=== PATIENT | female | born 1990 | race Caucasian/White ===

== ENCOUNTER → 2020-05-29 11:49 | Outpatient (CLI) | payer MEDICAID, SELFPAY ==
[2020-05-28 16:06] VITALS: BMI 34.8
[2020-05-29 13:17] LABS: NATERA MAILED SPECIMEN
== END ==
PROVIDERS: Referring Provider Nurse Practitioner Women's Health; Visit Provider Nurse Practitioner Women's Health
DX: Z34.81 Encounter for supervision of other normal pregnancy, first trimester (principal); Z31.430 Encounter of female for testing for genetic disease carrier status for procreative management
CPT/HCPCS: 36415

== ENCOUNTER 2020-06-30 10:58 | Emergency (ER) | payer MEDICAID, SELFPAY ==
[2020-06-26 11:16] VITALS: BMI 34.8
[2020-06-30 10:59] VITALS: BP 128/97; PULSE 90; RESP 18; TEMP 36.2; O2SAT 98; BMI 34.9
[2020-06-30 11:34] VITALS: BP 108/84; PULSE 86; RESP 17; O2SAT 97
--- NOTE | 2020-06-30 11:54 | ED.VIS.GEN ---
History of Present Illness Chief Complaint: Informant: Patient Narrative: Patient presents the emergency department with lower pelvic pain during second trimester . G2, P1 at approximately 16 weeks and 6 days. She states that she has had some round ligament pain but this feels similar but more intense. She notes lower pelvis pain nto the back with radiation down legs at times. No leakage of fluid or bleeding. Patient went to urgent care and they wanted her to come here. 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 Patient denies any urinary symptoms. Blood pressure has been normal for her. Patient reports that she has been doing a significant amount of work lately. This requires her to be on her feet for extended periods of time. - Past Medical History (1) Cardiomyopathy Status: Chronic Comment: Reports developed while in hospital after last delivery. Was transferred to cardiac floor. Did not have to follow with cardiology after last delivery. Will get records. Plan M referral. 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 FOB negative. (3) Depression affecting Status: Chronic Comment: Patient with history of depression and anxiety. Was taken off medication when found out she was , but having severe depression. Celexa 20mg ordered 06/26 (4) JOSE M (generalized anxiety disorder) Status: Chronic (5) PTSD (post-traumatic stress disorder) Status: Chronic Comment: After last delivery Past Medical History - Allergies and Home Meds Allergies/Adverse Reactions: Allergies adhesive tape Adverse Reaction (Intermediate, Verified 06/30/20 10:59) Other CONTACT IRRITATION acetaminophen [From Percocet] Adverse Reaction (Mild, Verified 06/30/20 10:59) Itching oxycodone [From Percocet] Adverse Reaction (Mild, Verified 06/30/20 10:59) Itching Primary Care Physician: Care Physician,No Primary [Primary Care Provider] - Prior records reviewed: Yes Surgical History: noncontributory Smoking Status: Former smoker Alcohol: None Drugs: None Review of Systems General: Denies: Chills, Fever, Sweats Eyes: Denies: Visual changes - bilaterally, Diplopia ENT: Denies: Rhinorrhea, Sore throat Cardiovascular: Denies: Chest pain, Palpitations Respiratory: Denies: Dyspnea, Cough, Dyspnea on exertion Gastrointestinal: Denies: Abdominal pain, Nausea, Vomiting, Diarrhea, Melena, Hematochezia Genitourinary: Reports: - - Pelvic pain. Denies: Dysuria, Hematuria, Frequency Musculoskeletal: Reports: Back pain. Denies: Extremity Pain Skin: Denies: Rash, Wounds Neurological: Denies: Headache, Weakness, Numbness Physical Exam Vital Signs/Narrative: Vital Signs Temp Pulse Resp BP Pulse Ox 06/30/20 11:34 86 17 108/84 H 97 06/30/20 10:59 97.1 F L 90 18 128/97 H 98 Inital Vital Signs reviewed: Yes General: Well nourished, Well developed, Obese, No Acute Distress Head: Normocephalic, Atraumatic Eyes: Perrl, EOMI ENT: Moist mucous membranes, No rhinorrhea Neck: Supple, Nontender Cardiovascular: Regular rate, Regular rhythm, No murmurs Respiratory: No distress, CTA bilaterally, Chest nontender Abdomen: Soft, Nontender, Nondistended, Normal bowel sounds Back: Nontender, Normal Inspection Extremities: Nontender, No edema Skin: Normal color, No rash Neurological: Alert, Oriented x3, Cranial nerves II-XII grossly intact, Normal Strength, Normal Sensation Psychological: Normal affect, Normal Mood Diagnostic/Tx/Re-eval Laboratory Last Values Urine Color Yellow (Yellow) 06/30/20 12:20 Urine Clarity Sl. Cloudy (Clear) 06/30/20 12:20 Urine pH 6.5 (5.0 - 8.0) 06/30/20 12:20 Ur Specific [place] 1.015 (1.002-1.030) 06/30/20 12:20 Urine Protein 15 mg/dl (Negative) H 06/30/20 12:20 Urine Glucose (UA) Normal mg/dl (Normal) 06/30/20 12:20 Urine Ketones Negative mg/dl (Negative) 06/30/20 12:20 Urine Occult Blood 10 /ul (Negative) H 06/30/20 12:20 Urine Nitrite Positive (Negative) H 06/30/20 12:20 Urine Bilirubin Negative mg/dL (Negative) 06/30/20 12:20 Urine Urobilinogen Normal mg/dl (Normal) 06/30/20 12:20 Ur Leukocyte Esterase 25 /ul (Negative) H 06/30/20 12:20 Urine RBC 0-5 SEEN /hpf (0-5) 06/30/20 12:20 Urine WBC 0-5 SEEN /hpf (0-5) 06/30/20 12:20 Ur Squamous Epith Cells 0-5 SEEN /hpf (5-10) 06/30/20 12:20 Urine Bacteria 1+ /hpf (None Seen) 06/30/20 12:20 Urine Mucus 0 SEEN /hpf (<or=2+) 06/30/20 12:20 - Medical Decision Making Bedside ultrasound demonstrates heart rate of 158 with good motion. ED Disposition - Plan for ED Patient: Disposition: Home or Assisted Living Diagnosis: Second trimester , Pelvic pain Instructions: ED Pelvic Pain Preg UKO 2 or 3 Tri Referrals: Desi Junior MD [STAFF PHYSICIAN] - Keep [facility] appointment
[2020-06-30 12:03] VITALS: BP 123/65; PULSE 78; RESP 18; O2SAT 98
[2020-06-30 12:34] LABS: Mucous, Urine 0 SEEN /hpf (<or=2+)
[2020-06-30 12:48] LABS: Color, Urine Yellow (Yellow); Glucose, Dipstick Normal (Normal); Ketone-Dipstick Negative (Negative); Leukocyte Esterase-Dipstick 25 /ul (Negative); Nitrite-Dipstick Positive (Negative); Occult Blood-Urine 10 /ul (Negative); Protein-Dipstick 15 mg/dl (Negative); Specific Gravity, Urine 1.015 (1.002-1.030); Urine Bilirubin Dipstick Negative (Negative); Urine Clarity Sl. Cloudy (Clear); Urine Urobilinogen Normal (Normal); Urine pH 6.5 (5.0 - 8.0)
[2020-06-30 13:08] LABS: Bacteria 1+ /hpf (None Seen); Red Blood Cells-Urine 0-5 SEEN /hpf (0-5); Squamous Epithelial Cells - UA 0-5 SEEN /hpf (5-10); White Blood Cells 0-5 SEEN /hpf (0-5)
[2020-06-30 13:28] VITALS: BP 110/56; PULSE 62; RESP 15; O2SAT 97
== END 2020-06-30 13:28 | disposition home or self-care (01) ==
PROVIDERS: Emergency Provider Emergency Medicine
DX: O26.892 Other specified pregnancy related conditions, second trimester (principal); R10.2 Pelvic and perineal pain; O99.342 Other mental disorders complicating pregnancy, second trimester; F32.9 Major depressive disorder, single episode, unspecified; F41.1 Generalized anxiety disorder; F43.10 Post-traumatic stress disorder, unspecified; O99.212 Obesity complicating pregnancy, second trimester; E66.9 Obesity, unspecified; Z3A.16 16 weeks gestation of pregnancy; Z14.1 Cystic fibrosis carrier; Z87.891 Personal history of nicotine dependence
CPT/HCPCS: 81001; 87086; 87088; 99283; J7030; A4216

== ENCOUNTER → 2020-08-14 14:52 | Outpatient (CLI) | payer MEDICAID, SELFPAY ==
[2020-08-14 14:16] VITALS: BMI 37.2
--- NOTE | 2020-08-14 14:53 | US_ITS ---
STUDY: SECOND AND THIRD TRIMESTER OBSTETRICAL ULTRASOUND REASON FOR EXAM: Female, 29 years old DEMISE LMP: 03/07/2020. TECHNIQUE: Transabdominal TECHNICAL QUALITY: Adequate. PRIOR ULTRASOUND: None. FINDINGS: There is a single intrauterine fetus. The fetus is in an transverse lie with the head on the maternal left side. No heart rate is seen. There is a normal amniotic fluid volume. The amniotic fluid index (MARTIN) is within normal limits. The placenta is posterior and fundal in location and is not low lying. There are Grade 2 placental changes. The bilateral adnexal regions are normal. BIOMETRY: BPD: 4.7 cm: 20 weeks, 0 days HC: 17.8 cm: 20 weeks, 1 days AC: 14.4 cm: 19 weeks, 4 days FL: 3.3 cm: 20 weeks, 0 days age by current US: 19 weeks, 6 days. JOSE by current US: 01/02/2021. Estimated weight: 322 grams, +/- 48 grams, 0.6% Age by LMP: 22 weeks, 6 days. JOSE by LMP: 12/12/2020. US/OB Limited With Biometrics IMPRESSION: No heart rate. Estimated gestational age of 19 weeks and 6 days. Electronically Signed: Kuldeep Oconnor, at 15:26 EST , Service support ,
== END ==
PROVIDERS: Referring Provider Obstetrics & Gynecology; Visit Provider Obstetrics & Gynecology
DX: O36.4XX0 Maternal care for intrauterine death, not applicable or unspecified (principal); Z3A.00 Weeks of gestation of pregnancy not specified
CPT/HCPCS: 76816

== ENCOUNTER 2020-08-15 18:25 | Inpatient (IN) | payer MEDICAID, SELFPAY ==
[2020-08-14 14:16] VITALS: BMI 37.2
[2020-08-15] VITALS (14 sets, daily range): BP systolic 105–137; BP diastolic 55–72; PULSE 53–85; TEMP 37.1–37.2; O2SAT 92–100; BMI 37.5
--- NOTE | 2020-08-15 19:30 | PCM.HPOB.BLA ---
- Problem List (1) demise Status: Acute Comment: confirmed with US. plan cytotec (2) Depression affecting Status: Chronic Comment: Patient with history of depression and anxiety. Was taken off medication when found out she was , but having severe depression. Celexa 20mg ordered 06/26 (3) Family history of muscular dystrophy Status: Acute Comment: FOB with mild case. Recommend genetic counseling. (4) PTSD (post-traumatic stress disorder) Status: Chronic Comment: After last delivery (5) JOSE M (generalized anxiety disorder) Status: Chronic (6) OCD (obsessive compulsive disorder) Status: Acute (7) Cardiomyopathy Status: Chronic Comment: Reports developed while in hospital after last delivery. Was transferred to cardiac floor. Did not have to follow with cardiology after last delivery. Will get records. cardio referral (8) IUGR (intrauterine growth restriction) in prior , Status: Acute Comment: With last (9) H/O section Status: Acute Comment: Had emergency after ultrasound done for decreased movement. Did not labor. Will obtain records from delivery. (10) Cystic fibrosis carrier Status: Chronic Comment: Patient carrier. FOB negative. 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 Required: No Accompanied by: self Is patient in pain?: Yes (h/a) Allergies adhesive tape Adverse Reaction (Intermediate, Verified 08/15/20 20:27) Other oxycodone [From Percocet] Adverse Reaction (Mild, Verified 08/15/20 20:27) Itching Medications multivitamin no.47-iron fum 27 mg-folate no.1 1 mg-dha 300 mg capsule 1 cap PO DAILY 05/28/20 [History Confirmed 08/15/20] Citalopram [Celexa] 20 mg PO DAILY 08/15/20 [History Confirmed 08/15/20] Last Menstral Period: 02/26/20 Zika: Zika virus screening: Negative : No PFSH PFSH Medical History PTSD (post-traumatic stress disorder) (Chronic) JOSE M (generalized anxiety disorder) (Chronic) OCD (obsessive compulsive disorder) (Acute) Cardiomyopathy (Chronic) IUGR (intrauterine growth restriction) in prior , (Acute) Depression (Acute) Surgical History H/O section (Acute ~2014) Family History Mother Usher syndrome Social History (Updated 08/16/20 @ 03:[address] Desi Junior MD) household members: family housing: house number of children: 3 current occupational status: employed current occupation: [employer] sexually active: Yes Smoking Status: Former smoker second hand exposure: Yes alcohol intake: current alcohol intake frequency: holidays/special occasions only substance use type: marijuana seatbelt use: always do you feel safe at home: Yes additional social history: MARYCHUY GOTTLIE[employer] ([place]) Pregancy History 2 Elective abortions Hx Para 1 Spontaneous abortions Hx # Term Pregnancies Ectopic pregnancies Hx # Pregnancies 1 Multiple births # of living children 1 Past Pregnancies Del. Date Name GA/Weeks Outcome Route Bth Weight Gen Labor Lgth Anesthesia Del Locatn Provider FOB Unknown 05/09/2015- FEDERICO MELO 36 live - 3LBS 14OZ Female spinal [facility] [place] Delivery Date: IUGR- STAT C/S DECREASED FM- NICU FOR ONE MONTH Melia Fritz HPI headache/blurry vision: Details: ELIZA LEON is a 29 year old who presents for headache. upon evaluation of the fetus, no FHT were seen and formal us performed confirming demise. patient denies any recent trauma, and states she has still felt movement. she denies any bleeding or cramping. she denies fever. OB Visit JOSE Calculator Estimated Delivery Date Method Current WG Current Estimate 12/12/20 Manual 23w 1d Expected Delivery Route/Plan plan schedule RLTCS and plan TOLAC if spontaneous labor Labor Preferences- labor support person: [] pain management options preferred: [] cut cord/dad catch: [] : [] PP control planned: [] discussed possible routes of delivery and associated risks: [] special requests: [] Specific Issue/Plans flu vaccine: [] tdap vaccine: [] rhogam: [] LARC form signed: [] Problem list reviewed and updated with the most current plan of care details and appropriate orders placed. Relevant counseling for the gestational age provided. Continue routine care and follow up unless otherwise noted in visit notes/problem list details Initial Weight: 216 lb Date EGA Weight BP Urine Prot Glucose FHR FuHt Pres Dilation Effaced St Visit Note 05/28/20 11w 5d 216 lb (+0 oz) Negative Negative 175 GP - US shows CRL consistent with prior US showing GA 08/07. 06/26/20 15w 6d 218 lb 2 oz (+2 lb 2 oz) 128/70 Negative Negative 160 GP - no cramping or bleeding. Trouble sleeping - discussed safe meds. Multiple skin tags in groin - will have return for removal. Worsening depression - celexa prescribed. 07/04/20 17w 0d 218 lb 4 oz (+2 lb 4 oz) 128/80 150 GP - Seen in ER for cramping - made her more anxious because baby was not moving much on US. Audible movement on doppler in office. No further cramping. Denies bleeding. Urine cx in ER below infection level. Reassurance provided. Anatomy scan scheduled for 07/24. 07/29/20 20w 4d 227 lb (+11 lb) 110/76 Negative Negative 145 SM- no vb lof good fm no regular ctx 08/14/20 22w 6d 230 lb 8 oz (+14 lb 8 oz) 122/76 Trace Negative MH-work in for headache. No heart tones. US in office per Sm to confirm. See note Dr Junior. Diagnostics Diagnostics Diagnostics Blood Type A NEGATIVE 08/15/20 Antibody Screen NEGATIVE 08/15/20 Pap Smear Negative 04/08/20 Hgb 13.4 g/dL (12.0-15.0) 08/15/20 Hct 40.1 % (37-47) 08/15/20 Details: HIV: Urine Culture: Sequential Screen: NIPT Screen: ROS Const Reports system reviewed and no additional complaints, except as docu Card Reports system reviewed and no additional complaints, except as docu Resp Reports system reviewed and no additional complaints, except as docu GI Reports system reviewed and no additional complaints, except as docu, Reports nausea Reports system reviewed and no additional complaints, except as docu Musc Reports system reviewed and no additional complaints, except as docu Exam Const General: cooperative, healthy appearing, comfortable, anxious HENMT Head: normal to inspection Nose: external nose normal Face and sinus: normal facial exam Neck Neck: normal visual inspection, full ROM, no lymphadenopathy Thyroid: thyroid normal Chest Chest palpation & inspection: normal inspection of the chest Resp Effort & Inspection: normal respiratory effort GI Inspection: normal to inspection Palpation: soft, other (gravid uterus) Other: Cervical Exam: Extrem General: pedal edema Results POC Urinalysis 2 Dip (Clinic) Office Urine Glucose Negative Last Edit by Macie Andre on 08/14/20 14:27 Office Urine Protein Trace Last Edit by Macie Andre on 08/14/20 14:27 Assessment & Plan Problems 1. Cystic fibrosis carrier Z14.1 Patient carrier. FOB negative. 2. H/O section Z98.891 Had emergency after ultrasound done for decreased movement. Did not labor. Will obtain records from delivery. 3. IUGR (intrauterine growth restriction) in prior , O09.299 With last 4. OCD (obsessive compulsive disorder) F42.9 5. JOSE M (generalized anxiety disorder) F41.1 6. PTSD (post-traumatic stress disorder) F43.10 After last delivery 7. Family history of muscular dystrophy Z82.0 FOB with mild case. Recommend genetic counseling. 8. Depression affecting O99.340; F32.9 Patient with history of depression and anxiety. Was taken off medication when found out she was , but having severe depression. Celexa 20mg ordered 06/26 9. demise confirmed with US. plan cytotec 10. Z34.90 declines AFP; FOB HAS MUSCULAR DYSTROPHY, NIPT low risk, anatomy normal 11. Supervision of high risk , antepartum O09.90 PRR JOSE: 12/12/2020 girl Brett PC: FEDER[place] BF:OSCAR(SHU & NHUNG) Plan - Dr. Desi Junior MD plan IOL with cytotec, lab evaluation ordered. nl NIPT. send placenta for pathology due to SGA. Orders Orders: POC Urinalysis 2 Dip (Clinic) 08/14/20 OB Limited With Biometrics 08/14/20 O36.4XX0 Coding Diagnoses Cystic fibrosis carrier Z14.1 H/O section Z98.891 IUGR (intrauterine growth restriction) in prior , O09.299 OCD (obsessive compulsive disorder) F42.9 JOSE M (generalized anxiety disorder) F41.1 PTSD (post-traumatic stress disorder) F43.10 Family history of muscular dystrophy Z82.0 Depression affecting O99.340; F32.9 demise Z34.90 Supervision of high risk , antepartum O09.90 UPDATE- I have seen the patient and performed any clinically relevant updates to the history and physical exam. Desi Junior MD
[2020-08-15] MEDS: Lactated Ringers 1,000 ML 50 ML IV (20:05)
[2020-08-15 20:32] LABS: Absolute Lymphocyte Count 2.05 X10^3/uL (0.83-4.51); Absolute Neutrophil Count 6.5 X10^3/uL (2.0-7.7); Basophil# 0.03 X10^3/uL; Basophil% 0.3 % (0-1); Eosinophils% 1.1 % (0-5); Hematocrit 40.1 % (37-47); Hemoglobin 13.4 g/dL (12.0-15.0); Lymphocyte # 2.05 X10^3/ul (4.0); Lymphocyte % 22.3 % (19-41); Mean Corp Hgb Conc 33.4 g/dL (32-36); Mean Corpuscular Hgb 30.7 pg (27.0-32.0); Mean Platelet Vol. 10.6 fl (6.2-12.0); Monocyte% 5.4 % (0-10); NRBC Flagged by Analyzer 0 % (0-5); Neutrophil # 6.47 X10^3/uL (2.7-7.7); Neutrophil % 70.5 % (47-70); Platelet Count 300 K/mm3 (150-450); RBC Distribution Width CV 13.3 % (11.6-14.6); RBC Distribution Width SD 45.2 fl (35.1-43.9); Red Blood Count 4.36 M/mm3 (4.2-5.4); White Blood Count 9.2 K/mm3 (4.4-11.0)
[2020-08-15 20:46] LABS: Partial Thromboplast Time 25.7 Seconds (24.1-36.2); Prothrombin Time (Protime)PT. 12.3 SECONDS (11.7-14.9)
[2020-08-15 20:51] LABS: Fibrinogen 480 mg/dl (203-444)
[2020-08-15] MEDS: miSOPROStol 200 MCG Tablet 800 MCG VAGINAL (21:07)
[2020-08-15] MEDS: HYDROmorphone 0.5 MG/0.5 ML SYRINGE IV (21:15)
[2020-08-15 21:24] LABS: ALB/GLOB Ratio 0.7 RATIO (0.9-2.4); AST(SGOT) 7 U/L (15-37); Alanine Aminotransfer ALT/SGPT 14 U/L (13-56); Albumin, Serum 3.2 g/dL (3.2-5.0); Alkaline Phosphatase 85 U/L (45-117); Anion Gap 8 (5-15); BUN 13 mg/dL (7-18); Calcium,Total 9.4 mg/dL (8.5-10.1); Chloride 104 mmol/L (98-107); Creatinine, Serum 0.72 mg/dL (0.55-1.02); EST Glomerular Filtration Rate 101 mL/min (>60); Est Glom Filt Rate - Afr Amer 122 mL/min (>60); Estimated Creatinine Clearance 103.74 ml/min; Globulin 4.7 g/dL (2.2-4.2); Glucose 76 mg/dL (74-106); Potassium 3.7 mmol/L (3.5-5.1); Protein, Total 7.9 g/dL (6.4-8.2); Sodium Level 138 mmol/L (136-145); Thyroid Stim Hormone (TSH) 3.34 uIU/mL (0.358-3.74)
[2020-08-15 22:04] LABS: Amphetamine Urine VISTA NEGATIVE (<1000 ng/mL); Barbiturate Urine VISTA NEGATIVE (< 200 ng/mL); Benzodiazepine Urine VISTA NEGATIVE (< 200 ng/mL); Cocaine Urine VISTA NEGATIVE (< 300 ng/mL); Ecstacy Urine VISTA NEGATIVE (< 500 ng/mL); Methadone Urine VISTA NEGATIVE (< 300 ng/mL); PCP Urine VISTA NEGATIVE (< 25 ng/mL); THC Urine VISTA POSITIVE (< 50 ng/mL); Vista UDS pH Range 6
[2020-08-15] MEDS: oxyCODONE 5 MG Tablet 10 MG PO (22:21)
[2020-08-15] MEDS: Lactated Ringers 500 ML 999 ML IV (22:58)
[2020-08-16] VITALS (78 sets, daily range): BP systolic 101–132; BP diastolic 50–72; PULSE 63–91; RESP 13–19; TEMP 36.8–37.8; O2SAT 87–100; BMI 37.5
--- NOTE | 2020-08-16 | POC_PTH ---
PATIENT: ELIZA LEON LOC: [facility] U#:[id number] AGE/SX: 29/F ROOM: WP021 RE08/15/[address]: Dr. Desi Junior MD : 1990 BED: 1 DIS: 08/17/2020 SPEC #: [id number] RECD: 08/16/20 07:54 STATUS: KHANG REBrett #: [id number] SILVIA: 08/16/20 00:[address]: Desi Junior DEPT: SURGICAL PATHOLOGY RECD BY: Jose Elias Padilla ENTERED: 08/18/20 10:18 SP TYPE: PROD CONC OTHR DR: No Primary Care Phys Tissues: Product of conception, NOS Procedures: Surgery Specimen Level IV HEADER OPERATION: Vaginal delivery PRE-OP DIAGNOSIS: demise TISSUE SUBMITTED: Products of conception MICROSCOPIC DIAGNOSIS Products of conception: Fragments of immature placental tissue and gestational endometrium. A segment of macerated umbilical cord (20 cm in length). Membranes - no pathologic diagnosis. ZULEMA:janet 08/19/20 MICROSCOPIC DESCRIPTION Slides are reviewed. GROSS DESCRIPTION Received in fixative is one container labeled with the patient's name and designated products of conception. The specimen consists of multiple pieces of pink, hemorrhagic soft tissue that in aggregate measure 8 x 8 x 2 cm. A macerated segment of umbilical cord with a clamp is also noted measuring 20 cm in length and 1 cm in diameter. A segment of membrane is also noted attached to the maternal end of the umbilical cord. Atomizer Assembler tissue is submitted in three cassettes as follows: 1 - umbilical cord and membrane, end is inked black, 2 & 3 - pink, hemorrhagic soft tissue. / ZULEMA:janet 08/18/20 TC:5 CPT: 22077
[2020-08-16] MEDS: fentaNYL-bupivacaine (epidural) 100 ML BAG EPIDURAL (00:19)
[2020-08-16] MEDS: miSOPROStol 200 MCG Tablet 400 MCG VAGINAL ×2 (01:18→04:17)
[2020-08-16] MEDS: Acetaminophen/Butalbital/Caffe 1 Tablet 2 TABLET PO (03:04)
[2020-08-16] MEDS: Lactated Ringers 1,000 ML 200 ML IV (03:39)
--- NOTE | 2020-08-16 03:57 | OP.PCM_ITS ---
Problem List (1) demise Status: Acute Comment: confirmed with US. plan cytotec (2) Depression affecting Status: Chronic Comment: Patient with history of depression and anxiety. Was taken off medication when found out she was , but having severe depression. Celexa 20mg ordered 06/26 (3) Family history of muscular dystrophy Status: Acute Comment: FOB with mild case. Recommend genetic counseling. (4) PTSD (post-traumatic stress disorder) Status: Chronic Comment: After last delivery (5) JOSE M (generalized anxiety disorder) Status: Chronic (6) OCD (obsessive compulsive disorder) Status: Acute (7) Cardiomyopathy Status: Chronic Comment: Reports developed while in hospital after last delivery. Was transferred to cardiac floor. Did not have to follow with cardiology after last delivery. Will get records. cardio referral (8) IUGR (intrauterine growth restriction) in prior , Status: Acute Comment: With last (9) H/O section Status: Acute Comment: Had emergency after ultrasound done for decreased movement. Did not labor. Will obtain records from delivery. (10) Cystic fibrosis carrier Status: Chronic Comment: Patient carrier. FOB negative. (11) Status: Acute Qualifiers: Comment: declines AFP; FOB HAS MUSCULAR DYSTROPHY, NIPT low risk, anatomy normal (12) Supervision of high risk , antepartum Status: Acute Comment: PRR JOSE: 12/12/2020 girl Brett PC: FEDERICO BF:OSCAR(SHU & NHUNG) Report of Operation Date of Procedure: 08/16/20 Pre-Operative Diagnosis: retained poc Post-Operative Diagnosis: same Surgery/Procedure Performed:: suction d and c Description of Surgical Findings:: 18 cm uterus Type of Anesthesia:: Epidural Special Medications: ancef Specimen's removed: poc Drains: treadwell Estimated Blood Loss (mL): 100 Fluids Replaced: crystalloid Description of Procedure: patient adequately dosed with anesthesia and prepped and draped in the sterile fashion. using a 14 mm suction currett to make passes to remove the placenta, and sharp curretage performed to confirm full removal. no complications ebl- 100 Grafts/Implants Used: none - Complications none - Admit VTE Documentation VTE Present on Admission: No VTE Mechan Device Prophylaxis: SCD's Vaginal Delivery Maternal Presentation: Medically Indicated Induction iol 22 week demise Method of Induction: Cytotec Medical Reason for Induction: demise Amniotic Membrane Rupture Type: Spontaneous Amniotic Fluid Description: Clear Final JOSE: 12/12/20 Gestational age: 23 Weeks and 1 Days Date of Procedure: 08/16/20 Pre-Operative Diagnosis: iol demise Post-Operative Diagnosis: same Surgery/ Procedure Performed: Spontaneous Vaginal Delivery Type of Anesthesia: Epidural Description of Procedure: patient dilated to 5 cm and delivered the infants body with the head still present in the cervix. after pushing and reducing the cervix the head delivered spontaneously. no gross abrnormalities were seen to the fetus. no heartbeat was confirmed with demise. cord clamped and cut. after several hours placenta was noted to not be coming out spontaneously or with gentle traciton, therefore the decision to proceed with a suction d and c for retained products was made. ebl 100 additional findings- narrow pelvic outlet and vaginal introitus noted- would recommend cesareans for future term deliveries. Presentation: Footling Breech Placental Delivery Description: Spontaneous Placenta Disposition: [facility] Estimated Blood Loss: 100 Infant A gender: Female (1 minute): 0 (5 minute): 0 Episiotomy Description: None Laceration: None Medications given after delivery: IV Pitocin Complications: None Multi Select Codes - Urinary/Genital Urinary/Genital CPT Codes: 39159 Curettage, , 86847 Vaginal Delivery+ Care([facility]) - demise 22 weeks
[2020-08-16] MEDS: Cefazolin 2 GM in 0.9% Normal Saline 100 ML IV (06:20)
[2020-08-16] MEDS: Lubricating Jelly 60 GM Tube 30 GM TOPICAL (06:40)
[2020-08-16] MEDS: Oxytocin 30 units/NS 500 ml 30 UNITS/500 ML IV.SOLN 334 UNITS IV (07:10)
--- NOTE | 2020-08-16 07:59 | NURSING ---
0430 infant taken to crib per mother's request. Weighed at 0lbs and 11oz, 10.5in long and a head circumference of 6.25in. Infant wrapped in knit blanket and footprints taken. Pictures done per staff physician, memory card placed in memory box and forget -me not basket given to mother and father. 0623: Pt taken to main OR by THAD Merritt and HTAD Gallardo in hospital bed. Pt stable. Report given to THAD Middleton.
--- NOTE | 2020-08-16 08:42 | NURSING ---
home here at bedside at 0825 for . Report of provided. RN at bedside to provide emotional support.
[2020-08-16] MEDS: Acetaminophen 500 MG Tablet 1000 MG PO ×2 (09:18→20:15)
--- NOTE | 2020-08-16 10:37 | NURSING ---
Patient up with RN to bathroom. Steady on feet. Kuo catheter removed and pericare completed. Now eating breakfast. K pad applied for cramping.
--- NOTE | 2020-08-16 12:22 | CASEMGMT ---
Social Work Assessment Labor and Delivery Unit Date of Referral: 08/16/2020 Time of Referral: 06:39 Referred By: Dr. Junior Date of Intervention: 08/16/2020 Time of Intervention: 12:22 Reason for Referral: 23 week demise. History obtained from: Mother of baby (MOB), chart, nursing staff. Household composition: MOB, Father of baby (FOB), Gerald Steiner and Milli Workman (5 years old). Milli shares maternity with this infant but not paternity. Patient's parent/guardian status: MOB and FOB have been together for a year and are engaged. was not planned but accepted. This is second loss for FOB, first for MOB. Mental Health History: MOB reports history of PTSD, Anxiety, Depression and Depression (PPD). MOB reports history of counseling ?before I moved to [place].? MOB reports to have recently moved to [place] and to be interested in setting up counseling again as ?it worked in the past.? MOB reports history of trauma when adolescent and adult. MOB reports to feel safe with FOB. MOB reports history of medications to manage mental health. MOB open to resources for counseling services. This social work lecturer able to facilitate conversation with MOB about PPD signs and symptoms. MOB does report history of suicidal thoughts with attempt one year ago via overdose. MOB denies any inpatient psychiatric placement or other suicide attempts. MOB denies active suicidal thoughts/plans/intents. MOB denies self-harming behavior. MOB is forward thinking and reports to want to live for other daughter, Milli and Gerald. Family/Social Stressors: MOB denies any current stressors outside infant loss. Support Systems: MOB reports positive support system from friends and family. MOB?s daughter, Milli currently with family while MOB and FOB are at hospital. Education/Employment History: MOB denies any issues/concerns with comprehension or understanding. MOB reports to currently work for [employer] and to have ?some time off.? ASSESSMENT: Met with MOB in room. Introduced self and social work lecturer role. MOB agreeable to speak with this social work lecturer. MOB presenting with a flat affect. MOB reports ?I am dealing with this different then I thought I would.? This social work lecturer normalizing MOB?s emotions/thoughts. MOB with appropriate affect and emotional regulation. MOB did use expression at times throughout assessment. MOB thanking this social work lecturer for support. MOB open to resources for local counseling agencies, crisis hotline, [facility] Behavioral Health program, grief support, and list of PCP?s. MOB with history of seeing a psychiatrist and plans to follow up with setting up counseling services. MOB reports that FOB is ?doing okay.? MOB reports to have positive support in the community. MOB wanting to stay another day at the hospital due to history of complications with first infant. Active support and listening provided. No other services requested or indicated. Nael VALDEZ, RABIA
[2020-08-16] MEDS: Ketorolac 10 MG Tablet PO (14:07)
[2020-08-16] MEDS: oxyCODONE 5 MG Tablet PO ×2 (17:49→22:23)
[2020-08-16] MEDS: Citalopram 20 MG Tablet PO (22:16)
[2020-08-17] VITALS (8 sets, daily range): BP systolic 103–110; BP diastolic 49–57; PULSE 65–73; RESP 16–18; TEMP 35.8–36.6; O2SAT 99–100
[2020-08-17 04:03] LABS: Pathology Specimen OB SEE PATHOLOGY REPORT
[2020-08-17] MEDS: Naproxen 250 MG Tablet 500 MG PO (04:19)
[2020-08-17 05:40] LABS: Absolute Lymphocyte Count 1.81 X10^3/uL (0.83-4.51); Absolute Neutrophil Count 5.6 X10^3/uL (2.0-7.7); Basophil# 0.02 X10^3/uL; Basophil% 0.3 % (0-1); Eosinophil# 0.11 X10^3/uL; Eosinophils% 1.4 % (0-5); Hematocrit 33.4 % (37-47); Hemoglobin 11.1 g/dL (12.0-15.0); Lymphocyte # 1.81 X10^3/ul (4.0); Lymphocyte % 22.7 % (19-41); Mean Corp Hgb Conc 33.2 g/dL (32-36); Mean Corpuscular Hgb 31.1 pg (27.0-32.0); Mean Corpuscular Volume 93.6 fL (81-99); Mean Platelet Vol. 9.8 fl (6.2-12.0); Monocyte# 0.41 X10^3/uL; Monocyte% 5.2 % (0-10); NRBC Flagged by Analyzer 0 % (0-5); Neutrophil # 5.58 X10^3/uL (2.7-7.7); Platelet Count 180 K/mm3 (150-450); RBC Distribution Width CV 13.3 % (11.6-14.6); RBC Distribution Width SD 45.3 fl (35.1-43.9); Red Blood Count 3.57 M/mm3 (4.2-5.4)
[2020-08-17 06:00] LABS: ALB/GLOB Ratio 0.7 RATIO (0.9-2.4); AST(SGOT) 16 U/L (15-37); Alanine Aminotransfer ALT/SGPT 13 U/L (13-56); Albumin, Serum 2.5 g/dL (3.2-5.0); Alkaline Phosphatase 73 U/L (45-117); Anion Gap 5 (5-15); BUN 8 mg/dL (7-18); BUN/Creat Ratio 13.2 RATIO (10-20); Chloride 109 mmol/L (98-107); EST Glomerular Filtration Rate 124 mL/min (>60); Est Glom Filt Rate - Afr Amer 150 mL/min (>60); Estimated Creatinine Clearance 124.49 ml/min; Globulin 3.4 g/dL (2.2-4.2); Glucose 83 mg/dL (74-106); Potassium 3.7 mmol/L (3.5-5.1); Protein, Total 5.9 g/dL (6.4-8.2); Sodium Level 140 mmol/L (136-145)
--- NOTE | 2020-08-17 06:22 | PN.OBGYN_ITS ---
Patient Problems: Active and Suspected Problems (Last Reviewed 08/14/20 @ 14:19 by Macie Andre) demise (Acute) confirmed with US. plan cytotec Family history of muscular dystrophy (Acute) FOB with mild case. Recommend genetic counseling. OCD (obsessive compulsive disorder) (Acute) IUGR (intrauterine growth restriction) in prior , (Acute) With last H/O section (Acute) Had emergency after ultrasound done for decreased movement. Did not labor. Will obtain records from delivery. (Acute) declines AFP; FOB HAS MUSCULAR DYSTROPHY, NIPT low risk, anatomy normal Supervision of high risk , antepartum (Acute) PRR JOSE: 12/12/2020 girl Brett PC: [place] BF:OSCAR(SHU & NHUNG) Subjective: had some lower abdominal pain overnight but tolerating po no CP SOB N V - Physical Exam Vitals/I&O's: Vital Signs Temp Pulse Resp BP Pulse Ox 97.8 F 73 18 103/57 L 97 08/17/20 04:13 08/17/20 04:13 08/17/20 04:13 08/17/20 04:13 08/16/20 20:07 Oxygen Delivery Method Room Air Weight: 225 lb 12.054 oz Body Mass Index (BMI) 37.5 Intake and Output for Last 24 Hours 08/15/20 08/16/20 08/17/20 23:59 23:59 23:59 Intake Total 500 / 500 2220.01 / 2220.01 Output Total 800 / 800 Balance 500 / 500 1420.01 / 1420.01 General: Alert, Oriented x3 Abdomen: Soft, Non Tender Laboratory Results 08/16/20 08:20: Screen NEGATIVE, Baby's Blood Type Not Reportable, Baby's RAMA Not Reportable 08/17/20 05:30: Sodium 140, Potassium 3.7, Chloride 109 H, Carbon Dioxide 26.0, Anion Gap 5, BUN 8, Creatinine 0.60, Estim Creat Clear Calc 124.49, Est GFR (MDRD) Af Amer 150, Est GFR (MDRD) Non-Af 124, BUN/Creatinine Ratio 13.2, Glucose 83, Calcium 8.0 L, Total Bilirubin 0.10 L, AST 16, ALT 13, Alkaline Phosphatase 73, Total Protein 5.9 L, Albumin 2.5 L, Globulin 3.4, Albumin/Globulin Ratio 0.7 L 08/17/20 05:30: WBC 8.0, RBC 3.57 L, Hgb 11.1 L, Hct 33.4 L, MCV 93.6, MCH 31.1, MCHC 33.2, RDW Std Deviation 45.3 H, RDW Coeff of May 13.3, Plt Count 180, MPV 9.8, Immature Gran % (Auto) 0.400, Neut % (Auto) 70.0, Lymph % (Auto) 22.7, [place] % (Auto) 5.2, Eos % (Auto) 1.4, Baso % (Auto) 0.3, Absolute Neuts (auto) 5.6, Absolute Lymphs (auto) 1.81, Nucleated RBC % 0 Current Medications Acetaminophen (Acetaminophen 500 Mg Tablet) 1,000 mg PO Q8H PRN PRN PRN Reason: Pain Score 1-3 Last Admin: 08/16/20 20:15 Dose: 1,000 mg Documented by: Bisacodyl (Bisacodyl 10 Mg Suppository) 10 mg RECTAL UD PRN PRN Reason: If no BM Citalopram Hydrobromide (Citalopram 20 Mg Tablet) 20 mg PO DAILY@2200 MARE Last Admin: 08/16/20 22:16 Dose: 20 mg Documented by: Dibucaine (Dibucaine 30 Gm Tube) 1 applic TOPICAL TID PRN PRN; Protocol PRN Reason: Discomfort Hydrocortisone (Hydrocortisone 2.5% Crm) 1 applic TOPICAL TID PRN PRN; Protocol PRN Reason: Discomfort Ketorolac Tromethamine (Ketorolac 10 Mg Tablet) 10 mg PO Q6H PRN PRN PRN Reason: Pain Score 1-3 Stop: 08/21/20 06:31 Last Admin: 08/16/20 14:07 Dose: 10 mg Documented by: Methylergonovine Maleate (Methylergonovine 0.2 Mg/Ml Ampul) 0.2 mg IM X1 PRN PRN Reason: Excess bleeding/uterine atony Naproxen (Naproxen 250 Mg Tablet) 500 mg PO Q8H PRN PRN PRN Reason: Pain Score 1-3 Last Admin: 08/17/20 04:19 Dose: 500 mg Documented by: Ondansetron HCl (Ondansetron 4 Mg/2 Ml Vial) 4 mg IV Q4H PRN PRN PRN Reason: Nausea Oxycodone HCl (Oxycodone 5 Mg Tablet) 5 - 10 mg PO Q4H PRN PRN PRN Reason: Pain Score 1-10 Last Admin: 08/16/20 22:23 Dose: 10 mg Documented by: Senna/Docusate Sodium (Senna/Docusate Sodium 1 Tablet) 1 - 2 tablet PO DAILY PRN PRN PRN Reason: Constipation Simethicone (Simethicone 80 Mg Tablet) 80 mg PO PCHS PRN PRN Reason: Indigestion/Stomach pain Sodium Chloride (0.9% Saline Lock 10 Ml Syringe) 5 - 15 ml IV UD PRN PRN Reason: SALINE FLUSH Medical Necessity - Tobacco Use Smoking Status: Former smoker Assessment/Plan All Active Problems (Last Reviewed 08/14/20 @ 14:19 by Macie Andre) demise (Acute) Family history of muscular dystrophy (Acute) OCD (obsessive compulsive disorder) (Acute) IUGR (intrauterine growth restriction) in prior , (Acute) H/O section (Acute) (Acute) Supervision of high risk , antepartum (Acute) POD1 from d and c sec retained POC and demise stable, labs WNL dc home
--- NOTE | 2020-08-17 06:23 | DCINST_ITS ---
Discharge Diet: No Restrictions Discharge Activity: Return to Normal Activity, May not drive while taking narcotic pain medications., May Shower May resume sexual activity in: 4-6 weeks Call your doctor if your incision/area has: Continuous Slow Oozing, Sudden Increased Bleeding, Increased Pain/ Swelling, Increased Redness, Foul Smelling Discharge Additional Instructions: If you experience any of the following, contact your healthcare provider. * Bleeding that soaks a pad every hour for 2 hours * Fever 100.4 or higher * Unrelieved incision or abdominal pain * Swelling, redness, discharge or bleeding from your incision or episiotomy site * Your incision begins to separate * Problems urinating (including inability to urinate or burning while urinating). * Visual changes * Severe headache * Flu-like symptoms * Pain or redness in one of both of your breasts * Pain, warmth, tenderness or swelling in your legs, especially the calf area * Frequent nausea and vomiting * Symptoms of depression or anxiety If you experience any of the following, call 911 or go to the nearest Emergency Room. * Chest pain * Problems breathing * Seizure activity * Partial or complete paralysis of a body part, slurred speech, weakness or drooping of the face, or a sudden inability to walk or hold your balance Allergies/Adverse Reactions: Allergies adhesive tape Adverse Reaction (Intermediate, Verified 08/15/20 20:27) Other CONTACT IRRITATION oxycodone [From Percocet] Adverse Reaction (Mild, Verified 08/15/20 20:27) Itching Medications to take at Discharge multivitamin no.47-iron fum 27 mg-folate no.1 1 mg-dha 300 mg capsule 1 cap PO DAILY 05/28/20 Citalopram [Celexa] 20 mg PO DAILY 08/15/20 Naproxen [Naprosyn] 250 - 500 mg PO Q8H PRN PRN #30 tab 08/17/20 Oxycodone HCl/Acetaminophen [Percocet 5-325] 1 - 2 tablet PO Q6H PRN PRN 7 Days #10 tablet 08/17/20 The following prescriptions were given: Naproxen [Naprosyn] 250 - 500 mg PO Q8H PRN PRN #30 tab PRN Reason: MILD PAIN Transmission Status: Pending to [facility] [facility] Oxycodone HCl/Acetaminophen [Percocet 5-325] 1 - 2 tablet PO Q6H PRN PRN 7 Days #10 tablet PRN Reason: Pain Transmission Status: Received by [facility] Please Follow Up With: Desi Junior MD - [phone] When: Call to make an appointment with your doctor in 6 weeks. If you had elevated Blood pressure or 4th degree laceration you will need to be seen in 2 weeks. Primary Care Physician: Care Physician,No Primary [Primary Care Provider] - Test Results: Test results from this visit will be discussed in further detail at your follow- up appointment, if applicable.
[2020-08-17] MEDS: oxyCODONE 5 MG Tablet PO (09:34)
[2020-08-19 11:00] LABS: Toxoplasma Gondii IgG < 3.0 IU/mL (0.0-7.1)
[2020-08-19 21:51] LABS: Anti-Cardiolipin Ab, IgA, Qn < 9 APL U/mL (0-11); Anti-Cardiolipin Ab, IgG, Qn < 9 GPL U/mL (0-14); Anti-Cardiolipin Ab, IgM, Qn 17 MPL U/mL (0-12); CMV Acute Antibody IgM < 30.0 AU/mL (0.0-29.9); CMV Antibody IgG < 0.60 U/mL (0.00-0.59); Toxoplasma Gondii IgM < 3.0 AU/mL (0.0-7.9)
[2020-08-19 21:52] LABS: PARVOVIRUS B19 IGG 5.3 index (0.0-0.8); PARVOVIRUS B19 IGM 0.2 index (0.0-0.8)
== END 2020-08-17 11:45 | disposition home or self-care (01) | DRG 560 ==
PROVIDERS: Admitting Provider Obstetrics & Gynecology; Visit Provider Obstetrics & Gynecology
PROC: 10E0XZZ Delivery of Products of Conception, External Approach (ICD-10-PCS; principal; 2020-08-16 06:15)
DX: O36.4XX0 Maternal care for intrauterine death, not applicable or unspecified (principal); Z37.1 Single stillbirth; F32.9 Major depressive disorder, single episode, unspecified; F41.1 Generalized anxiety disorder; F42.9 Obsessive-compulsive disorder, unspecified; F43.10 Post-traumatic stress disorder, unspecified; O99.344 Other mental disorders complicating childbirth; Z14.1 Cystic fibrosis carrier; Z87.891 Personal history of nicotine dependence; Z3A.23 23 weeks gestation of pregnancy; O32.8XX0 Maternal care for other malpresentation of fetus, not applicable or unspecified; O72.2 Delayed and secondary postpartum hemorrhage
CPT/HCPCS: 59050; 76816; 80053; 80307; 83036; 84443; 85025; 85384; 85460; 85461; 85610; 85730; 86147; 86644; 86645; 86747; 86777; 86778; 86850; 86900; 86901; 88305; 90384; 99218; J7120; G0378; J2405; J2790

== ENCOUNTER 2020-09-01 20:17 | Observation (INO) | payer MEDICAID, SELFPAY ==
[2020-08-16 05:52] VITALS: BMI 37.5
[2020-09-01 20:19] VITALS: BP 110/62; PULSE 109; RESP 20; TEMP 36.9; O2SAT 97; BMI 35.0
--- NOTE | 2020-09-01 21:16 | EKG12_ITS ---
Test Reason : CP/BACK PAIN Blood Pressure : / mmHG Vent. Rate : 103 BPM Atrial Rate : 103 BPM P-R Int : 120 ms QRS Dur : 068 ms QT Int : 348 ms P-R-T Axes : 065 063 019 degrees QTc Int : 455 ms Sinus tachycardia Otherwise normal ECG Confirmed by MARTITA HANSEN, MITCHELL ([id number]), offline editor PORSCHE ALLEN ([id number]) on 09/03/2020 9:40:42 AM Referred By: Mitchell Ramirez Confirmed By:MITCHELL ANDERS MD
--- NOTE | 2020-09-01 21:17 | ED.DCSUM_ITS ---
History of Present Illness Chief Complaint: Back Informant: Patient Onset: Days Context: Gradual Onset Timing: Waxes and wanes Current Severity: Moderate Maximum Severity: Severe Narrative: Patient presents with pain that started in her left mid back and radiated up toward her left shoulder. She states that initially started a couple days ago but today has been wrapping around her chest as well. Pain seems to come in waves. She does feel somewhat short of breath. Naproxen was initially helping her pain, but today she tried Percocet, naproxen, and Tylenol without significant improvement. She states the pain is worse with deep breathing. Patient had a delivery of a stillborn followed by a D&C on the 15th of this month. She states she tried has tried to get up and be active following the procedure. - Past Medical History (1) JOSE M (generalized anxiety disorder) Status: Chronic (2) PTSD (post-traumatic stress disorder) Status: Chronic Comment: After last delivery Past Medical History - Allergies and Home Meds Allergies/Adverse Reactions: Allergies adhesive tape Adverse Reaction (Intermediate, Verified 09/01/20 20:18) Other CONTACT IRRITATION oxycodone [From Percocet] Adverse Reaction (Mild, Verified 09/01/20 20:18) Itching Primary Care Physician: Care Physician,No Primary [Primary Care Provider] - Prior records reviewed: Yes Surgical History: noncontributory Smoking Status: Former smoker Review of Systems General: Denies: Chills, Fever Eyes: Denies: Visual changes - bilaterally ENT: Denies: Bilateral ear pain Cardiovascular: Reports: Chest pain Respiratory: Reports: Dyspnea. Denies: Cough Gastrointestinal: Denies: Abdominal pain, Nausea, Vomiting, Diarrhea Musculoskeletal: Denies: Swelling, Extremity Pain Skin: Denies: Rash Neurological: Denies: Headache Hematologic: Denies: Easy bruising, Easy bleeding Allergy: Denies: Uticaria Physical Exam Vital Signs/Narrative: Vital Signs Temp Pulse Resp BP Pulse Ox 09/01/20 20:19 98.5 F 109 H 20 H 110/62 97 Inital Vital Signs reviewed: Yes General: Well nourished, Well developed Head: Normocephalic ENT: Moist mucous membranes Neck: Supple Cardiovascular: Regular rate, Regular rhythm Respiratory: No distress, CTA bilaterally Abdomen: Soft, Nontender Extremities: Nontender Skin: Normal color Neurological: Alert, Oriented x3 Psychological: Normal affect Diagnostic/Tx/Re-eval Impressions Chest CTA 09/01/20 21:40 IMPRESSION: Bilateral pulmonary emboli in both descending pulmonary arteries. Widespread bilateral pulmonary opacities worse on the left. N.B. : The above information has been verbally conveyed by Lane Montoya MD to Claudia Olivares MD, on 09/01/2020 22:13:34 (ET). Electronically Signed: Lane Montoya MD at 22:15 EST , Service support , ADDENDUM: 09/01/20 2223 IMPRESSION: Bilateral pulmonary emboli in both descending pulmonary arteries. Widespread bilateral pulmonary opacities worse on the left. N.B. : The above information has been verbally conveyed by Lane Montoya MD to Claudia Olivares MD, on 09/01/2020 22:13:34 (ET). Electronically Signed: Lane Montoya MD at 22:15 EST , Service support , 09/01/20 21:40 CTA Chest W/WO Contrast [CT] Stat 09/01/20 22:20 Mucosa - Nose SARS-CoV-2 Antigen (Rapid) - Final Laboratory Results 09/01/20 09/01/20 21:25 21:25 WBC 10.7 RBC 4.01 L Hgb 11.7 L Hct 35.9 L MCV 89.5 MCH 29.2 MCHC 32.6 RDW Std Deviation 41.1 RDW Coeff of May 12.4 Plt Count 324 MPV 9.6 Immature Gran % (Auto) 0.500 Neut % (Auto) 77.2 H Lymph % (Auto) 13.1 L [place] % (Auto) 7.1 Eos % (Auto) 1.8 Baso % (Auto) 0.3 Absolute Neuts (auto) 8.3 H Absolute Lymphs (auto) 1.40 Nucleated RBC % 0 Sodium 139 Potassium 3.7 Chloride 106 Carbon Dioxide 27.0 Anion Gap 6 BUN 15 Creatinine 0.83 Estim Creat Clear Calc 92.78 Est GFR (MDRD) Af Amer 104 Est GFR (MDRD) Non-Af 86 BUN/Creatinine Ratio 18.1 Glucose 114 H Calcium 8.6 - Medical Decision Making Patient is initially given morphine and Zofran for pain control followed by dose of Dilaudid when she had no improvement in her symptoms. CTA of the chest does confirm bilateral PEs. No evidence of right heart strain. There is evidence of infiltrates bilaterally, left more than right. When I spoke with the radiologist he stated it looked more like infiltrate as opposed to infarct. He suggested a Covid test as it did look similar to viral infiltrate, however her Covid test did return negative. With patient having multifocal infiltrates she will be covered the dose of Levaquin. Patient has required another dose of narcotics for pain control. O2 sat was running 90 to 92% on room air, now 98% on 2 L. I will speak with hospitalist regarding admission for pain control. Patient has been given Eliquis for her PEs. ED Disposition - Plan for ED Patient: Disposition: Acute Care Hospital [facility] Diagnosis: Pulmonary emboli Referrals: Care Physician,No Primary [Primary Care Provider] -
[2020-09-01] MEDS: 0.9% Normal Saline 1,000 ML 150 ML IV (21:27)
[2020-09-01] MEDS: Ondansetron 4 MG/2 ML Vial IV (21:27)
[2020-09-01] MEDS: Morphine 4 MG/ML Syringe IV (21:27)
--- NOTE | 2020-09-01 21:40 | CT_ITS ---
STUDY: CTA CHEST REASON FOR EXAM: Female, 30 years old. LEFT SIDED BACK PAIN THAT RADIATES TO CHEST. SOB. D/C FOR STILL ON THE 15 RADIATION DOSAGE (If Supplied By Facility): CTDIvol = ( 12.55 ) mGy, DLP = ( 496.65 ) mGycm TECHNIQUE: The examination was performed with the intravenous administration of IV 100mL Isovue-370. Post-processing of the angiographic images was performed, with multiplanar reformation and 3D reconstruction. Individualized dose optimization techniques were used for this CT. COMPARISON: None. FINDINGS: Filling defects are seen throughout both distal descending pulmonary arteries consistent with PE. Findings are worse on the left. No pulmonary emboli in the main pulmonary trunk. No saddle embolus. No evidence of right ventricular strain. Normal heart size. Normal thoracic aorta and visualized great vessels. There is no demonstrated aortic dissection. Low lung volumes. Focal pulmonary opacities consistent with infiltrate seen of the lateral basal segment of the right lower lobe, the posterior right lung base, lateral left upper lobe and throughout the left lower lobe. Findings are consistent with multifocal pneumonia. Pulmonary infarct not excluded. No effusions. Normal osseous structures. Normal visualized upper abdomen. CT/CTA Chest W/WO Contrast IMPRESSION: Bilateral pulmonary emboli in both descending pulmonary arteries. Widespread bilateral pulmonary opacities worse on the left. N.B. : The above information has been verbally conveyed by Lane Montoya MD to Claudia Olivares MD, on 09/01/2020 22:13:34 (ET). Electronically Signed: Lane Montoya MD at 22:15 EST , Service support ,
[2020-09-01 22:06] LABS: Absolute Neutrophil Count 8.3 X10^3/uL (2.0-7.7); Basophil# 0.03 X10^3/uL; Basophil% 0.3 % (0-1); Eosinophil# 0.19 X10^3/uL; Eosinophils% 1.8 % (0-5); Hematocrit 35.9 % (37-47); Hemoglobin 11.7 g/dL (12.0-15.0); Lymphocyte % 13.1 % (19-41); Mean Corp Hgb Conc 32.6 g/dL (32-36); Mean Corpuscular Hgb 29.2 pg (27.0-32.0); Mean Corpuscular Volume 89.5 fL (81-99); Mean Platelet Vol. 9.6 fl (6.2-12.0); Monocyte# 0.76 X10^3/uL; Monocyte% 7.1 % (0-10); NRBC Flagged by Analyzer 0 % (0-5); Neutrophil # 8.27 X10^3/uL (2.7-7.7); Neutrophil % 77.2 % (47-70); Platelet Count 324 K/mm3 (150-450); RBC Distribution Width CV 12.4 % (11.6-14.6); RBC Distribution Width SD 41.1 fl (35.1-43.9); Red Blood Count 4.01 M/mm3 (4.2-5.4); White Blood Count 10.7 K/mm3 (4.4-11.0)
[2020-09-01] MEDS: HYDROmorphone 0.5 MG/0.5 ML SYRINGE IV ×2 (22:08→23:19)
[2020-09-01 22:20] LABS: Anion Gap 6 (5-15); BUN 15 mg/dL (7-18); BUN/Creat Ratio 18.1 RATIO (10-20); Calcium,Total 8.6 mg/dL (8.5-10.1); Chloride 106 mmol/L (98-107); Creatinine, Serum 0.83 mg/dL (0.55-1.02); EST Glomerular Filtration Rate 86 mL/min (>60); Est Glom Filt Rate - Afr Amer 104 mL/min (>60); Estimated Creatinine Clearance 92.78 ml/min; Glucose 114 mg/dL (74-106); Potassium 3.7 mmol/L (3.5-5.1); Sodium Level 139 mmol/L (136-145)
[2020-09-01] MEDS: APIXABAN 5 MG TABLET 10 MG PO (22:24)
[2020-09-01 23:00] VITALS: BP 129/81; PULSE 100; RESP 22; O2SAT 98
--- NOTE | 2020-09-01 23:56 | HP.PCM_ITS ---
Problem List (1) Pulmonary emboli Status: Acute (2) Depression affecting Status: Chronic Comment: Patient with history of depression and anxiety. Was taken off medication when found out she was , but having severe depression. Celexa 20mg ordered 06/26 (3) PTSD (post-traumatic stress disorder) Status: Chronic Comment: After last delivery (4) JOSE M (generalized anxiety disorder) Status: Chronic (5) OCD (obsessive compulsive disorder) Status: Acute (6) Cardiomyopathy Status: Chronic Comment: Reports developed while in hospital after last delivery. Was transferred to cardiac floor. Did not have to follow with cardiology after last delivery. Will get records. 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 FOB negative. History of Present Illness Date of Admission: 09/01/20 Chief Complaint: chest pain/back pain The patient is a 30 year old female with significant past medical history of demise status post approximately 2 weeks ago presents the emergency room with back pain and shortness of breath. Onset of symptoms began 2 days ago and have progressively become worse. She states the pain has moved from her back forward to her anterior chest but on both sides and is worse with deep breaths. CT examination shows bilateral pulmonary emboli and also shows infiltrations. Patient is currently hemodynamically stable however due to significant pain she will be admitted for further management of her pulmonary emboli and work-up of infiltrates. Per report of ER physician the x-ray does not appear to look like infarct in the lung tissue according to her conversation with radiology. Covid testing was performed and was negative. Past Medical History Past Medical History (Chronic Problems): Chronic Problems (Last Updated 08/19/20 @ 10:51 by Hannah Andre) Depression affecting (Chronic) Patient with history of depression and anxiety. Was taken off medication when found out she was , but having severe depression. Celexa 20mg ordered 06/26 PTSD (post-traumatic stress disorder) (Chronic) After last delivery JOSE M (generalized anxiety disorder) (Chronic) Cardiomyopathy (Chronic) Reports developed while in hospital after last delivery. Was transferred to cardiac floor. Did not have to follow with cardiology after last delivery. Will get records. 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 FOB negative. Medical History: Medical History (Last Updated 08/19/20 @ 10:51 by Hannah Andre) PTSD (post-traumatic stress disorder) (Chronic) F43.10 After last delivery JOSE M (generalized anxiety disorder) (Chronic) F41.1 OCD (obsessive compulsive disorder) (Acute) F42.9 Cardiomyopathy (Chronic) I42.9 Reports developed while in hospital after last delivery. Was transferred to cardiac floor. Did not have to follow with cardiology after last delivery. Will get records. cardio referral IUGR (intrauterine growth restriction) in prior , (Acute) O0 9.299 With last Depression F32.9 demise 22 weeks Allergies adhesive tape Adverse Reaction (Intermediate, Verified 09/01/20 20:18) Other CONTACT IRRITATION oxycodone [From Percocet] Adverse Reaction (Mild, Verified 09/01/20 20:18) Itching Home Medications: Ambulatory Orders Medication Instructions Recorded multivitamin no.47-iron fum 27 1 cap PO DAILY 05/28/20 mg-folate no.1 1 mg-dha 300 mg capsule Citalopram [Celexa] 40 mg PO DAILY 08/15/20 Naproxen [Naprosyn] 250 - 500 mg PO Q8H PRN PRN #30 tab 08/17/20 Surgical History: Surgical History (Last Updated 08/19/20 @ 10:51 by Hannah Andre) H/O section Onset Date: ~2014 Z98.891 ltcs Status post dilation and curettage Z98.890 retained POC Surgical History: noncontributory Smoking Status: Former smoker - *Family History Maternal Family History: Family History (Last Reviewed 08/14/20 @ 14:19 by Macie Andre) Mother Usher syndrome History Items: No pertinent history Review of Systems Constitutional: Denies: Chills, Fever, Weight Change HEENT: Denies: Head Aches, Sinus Congestion, Sinus Drainage Cardiovascular: Reports: Chest Pain. Denies: Palpitations Respiratory: Reports: Shortness of Breath. Denies: Cough, Sputum production Gastrointestinal: Denies: Abdominal Pain, Nausea, Vomiting Genitourinary: Denies: Dysuria Musculoskeletal: Denies: Joint Pain, Joint Tenderness Skin: Denies: Rash, Wounds Neurological: Denies: Numbness, Tingling, Focal weakness Psychiatric: Reports: Anxiety. Denies: Depression, Homicidal Ideations, Suicidal Ideations Hematologic/ Lymphatic: Denies: Easy Bruising, Easy Bleeding VTE Information - Inpt Only VTE Present on Admission: Yes VTE Mechan Device Prophylaxis: None VTE Pharm Prophylaxis ordered?: Yes Patient Problems: Active and Suspected Problems (Last Updated 08/19/20 @ 10:51 by Hannah Andre) Pulmonary emboli (Acute) - Physical Exam Vitals/I&O's: Vital Signs Temp Pulse Resp BP Pulse Ox 98.5 F 100 22 H 129/81 H 98 09/01/20 20:19 09/01/20 23:00 09/01/20 23:00 09/01/20 23:00 09/01/20 23:00 Oxygen Flow Rate (L/min) 2 Oxygen Delivery Method Nasal Cannula Weight: 216 lb 14.958 oz Body Mass Index (BMI) 35.0 General: Alert, Oriented x3, Cooperative HEENT: Atraumatic, Normocephalic Neck: Supple Lungs: No rhonchi, No wheeze, No rales, Diminished Cardiovascular: Regular Rhythm, Normal S1, Normal S2, No murmurs, Tachycardic Abdomen: Bowel Sounds Present, Soft, Obese Extremities: No edema Skin: No rashes Musculoskeletal: No Tenderness to Palpation of Joints or Extremities Neurological: Neuro grossly intact Psych/Mental Status: Normal Affect, Appropriate Microbiology Past 72 Hours 09/01/20 22:20 Mucosa - Nose SARS-CoV-2 Antigen (Rapid) - Final Laboratory Results 09/01/20 21:25: WBC 10.7, RBC 4.01 L, Hgb 11.7 L, Hct 35.9 L, MCV 89.5, MCH 29.2, MCHC 32.6, RDW Std Deviation 41.1, RDW Coeff of May 12.4, Plt Count 324, MPV 9.6, Immature Gran % (Auto) 0.500, Neut % (Auto) 77.2 H, Lymph % (Auto) 13.1 L, [place] % (Auto) 7.1, Eos % (Auto) 1.8, Baso % (Auto) 0.3, Absolute Neuts (auto) 8.3 H, Absolute Lymphs (auto) 1.40, Nucleated RBC % 0 09/01/20 21:25: Sodium 139, Potassium 3.7, Chloride 106, Carbon Dioxide 27.0, Anion Gap 6, BUN 15, Creatinine 0.83, Estim Creat Clear Calc 92.78, Est GFR (MDRD) Af Amer 104, Est GFR (MDRD) Non-Af 86, BUN/Creatinine Ratio 18.1, Glucose 114 H, Calcium 8.6 Current Medications Apixaban (Apixaban 5 Mg Tablet) 10 mg PO X1 ONE Stop: 09/02/20 22:15 Last Admin: 09/01/20 22:24 Dose: 10 mg Documented by: Sodium Chloride () 1,000 mls @ 150 mls/hr IV .Q6H40M MARE Last Admin: 09/01/20 21:27 Dose: 150 mls/hr Documented by: Assessment/Plan All Active Problems (Last Updated 08/19/20 @ 10:51 by Hannah Andre) Pulmonary emboli (Acute) demise (Acute) Family history of muscular dystrophy (Acute) OCD (obsessive compulsive disorder) (Acute) IUGR (intrauterine growth restriction) in prior , (Acute) H/O section (Acute) (Acute) Supervision of high risk , antepartum (Acute) Chronic Problems (Last Updated 08/19/20 @ 10:51 by Hannah Andre) Depression affecting (Chronic) Patient with history of depression and anxiety. Was taken off medication when found out she was , but having severe depression. Celexa 20mg ordered 06/26 PTSD (post-traumatic stress disorder) (Chronic) After last delivery JOSE M (generalized anxiety disorder) (Chronic) Cardiomyopathy (Chronic) Reports developed while in hospital after last delivery. Was transferred to cardiac floor. Did not have to follow with cardiology after last delivery. Will get records. 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 FOB negative. Plan 1. 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 Chest x-ray PA and lateral in the a.m. 2. Acute pain in chest secondary to #1?Dilaudid 1 mg IV every 3-4 hours as needed pain 3. Depression/PTSD/generalized anxiety disorder?continue home medication Inpatient E&M: [id number] Init Hosp L3
[2020-09-01 23:57] VITALS: BP 113/47; PULSE 102; RESP 18; TEMP 36.6; O2SAT 97
[2020-09-01] MEDS: levoFLOXacin 750 MG Tablet PO (23:59)
[2020-09-02] VITALS (19 sets, daily range): BP systolic 112–144; BP diastolic 54–99; PULSE 89–135; RESP 16–41; TEMP 36.4–37.4; O2SAT 96–100; BMI 35.4
[2020-09-02] MEDS: HYDROmorphone 1 MG/ML Syringe IV ×6 (01:23→20:33)
[2020-09-02] MEDS: 0.9% Saline Lock 10 ML Syringe IV ×9 (01:28→23:32)
[2020-09-02] MEDS: 0.9% Normal Saline 1,000 ML 150 ML IV (03:42)
[2020-09-02] MEDS: LORazepam 2 MG/ML Syringe 0.5 MG IV (05:53)
--- NOTE | 2020-09-02 05:55 | RAD_ITS ---
STUDY: X-RAY CHEST REASON FOR EXAM: Female, 30 years old. SOB, BEST FILMS POSSIBLE TECHNIQUE: PA and lateral views of the chest. COMPARISON: None. FINDINGS: EKG electrodes are seen. Increased markings are seen at both lung bases worse in the left lung base with areas of confluence suggestive of left basilar infiltrate. Mild elevation of the right hemidiaphragm. There is no demonstrated pleural abnormality. Normal size heart. Normal mediastinum and natalia. Normal visualized pulmonary arteries. Normal visualized aortic arch and descending thoracic aorta. Normal visualized thoracic spine. Normal visualized ribs, clavicles, and shoulders. There is no demonstrated abnormality of the visualized soft tissue structures of the upper abdomen. RAD/Chest PA and Lateral IMPRESSION: Left basilar atelectasis and/or infiltrate with mild increased markings at the right lung base. Electronically Signed: Kuldeep Oconnor, at 8:22 EST , Service support ,
--- NOTE | 2020-09-02 07:40 | NURSING ---
[facility] late due to patient being off floor for xray
[2020-09-02 08:07] LABS: Absolute Lymphocyte Count 0.88 X10^3/uL (0.83-4.51); Absolute Neutrophil Count 12.1 X10^3/uL (2.0-7.7); Basophil# 0.02 X10^3/uL; Basophil% 0.1 % (0-1); Eosinophil# 0.05 X10^3/uL; Eosinophils% 0.4 % (0-5); Hematocrit 34.3 % (37-47); Hemoglobin 10.9 g/dL (12.0-15.0); Lymphocyte # 0.88 X10^3/ul (4.0); Lymphocyte % 6.2 % (19-41); Mean Corp Hgb Conc 31.8 g/dL (32-36); Mean Corpuscular Hgb 29.5 pg (27.0-32.0); Mean Platelet Vol. 9.6 fl (6.2-12.0); Monocyte# 0.93 X10^3/uL; Monocyte% 6.6 % (0-10); NRBC Flagged by Analyzer 0 % (0-5); Neutrophil # 12.14 X10^3/uL (2.7-7.7); Neutrophil % 86.1 % (47-70); Platelet Count 340 K/mm3 (150-450); RBC Distribution Width CV 12.8 % (11.6-14.6); RBC Distribution Width SD 43.4 fl (35.1-43.9); Red Blood Count 3.69 M/mm3 (4.2-5.4); White Blood Count 14.1 K/mm3 (4.4-11.0)
[2020-09-02 08:33] LABS: Anion Gap 3 (5-15); BUN 14 mg/dL (7-18); BUN/Creat Ratio 17.4 RATIO (10-20); Calcium,Total 8.2 mg/dL (8.5-10.1); Chloride 108 mmol/L (98-107); EST Glomerular Filtration Rate 89 mL/min (>60); Est Glom Filt Rate - Afr Amer 108 mL/min (>60); Estimated Creatinine Clearance 96.26 ml/min; Glucose 117 mg/dL (74-106); Sodium Level 137 mmol/L (136-145)
[2020-09-02 08:49] LABS: BNP,B-Type NATRIURETIC PEPTIDE 15.8 pg/mL (0-100)
[2020-09-02] MEDS: ALPRAZolam 0.25 MG Tablet PO (08:54)
[2020-09-02] MEDS: Citalopram 40 MG TABLET PO (08:55)
[2020-09-02] MEDS: APIXABAN 5 MG TABLET 10 MG PO ×2 (08:55→21:36)
[2020-09-02] MEDS: Prenatal Vits Tablet 1 TABLET PO (08:56)
--- NOTE | 2020-09-02 10:42 | ECHOCS_ITS ---
Reason For Study: Bilateral PE Procedure This was a 2D Doppler, Color Flow transthoracic echocardiogram. Technically difficult study. Patient was scanned supine at a 45 degree angle for comfort with bilateral PE. Contrast injection performed. The study was technically difficult. Contrast injection was performed. Exam performed portable in patient room. Left Ventricle Normal LV size. Left ventricular systolic function is normal. The estimated ejection fraction is 60 %. No evidence for diastolic dysfunction. No regional wall motion abnormalities noted. Right Ventricle Normal RV size. Normal systolic function. Atria Normal left atrium. Normal right atrium. No doppler evidence for ASD. Mitral Valve There is no mitral annular calcification. Normal mitral valve. Trivial mitral valve insufficiency. Tricuspid Valve Normal tricuspid valve. Trivial tricuspid valve insufficiency. Unable to estimate RV systolic pressure/pulmonary artery pressure due to technically difficult study. Aortic Valve The aortic valve is not well visualized. Pulmonic Valve The pulmonic valve is not well visualized. Great Vessels Normal sized aortic root. Pericardium/Pleural No pericardial effusion. Medication Diluted definity 3ml given slow IV push to enhance endocardial definition. MMode/2D Measurements & Calculations LVIDd: 4.5 cm IVSd: 1.0 cm Ao root diam: 2.5 cm LVIDs: 3.5 cm LVPWd: 0.90 cm LA dimension: 4.0 cm FS: 23.3 % LAV(MOD-bp): 43.6 ml LA A4 area: 18.7 cm2 RA A4 area: 19.1 cm2 LAV(MOD-bp) Indexed: 21.0 ml/m2 LAV(MOD-sp2): 28.9 ml LAV(MOD-sp4): 52.1 ml Time Measurements MV dec time: 0.17 sec Doppler Measurements & Calculations MV E max eusebio: 112.1 cm/sec Lat Peak E' Eusebio: 13.2 cm/sec Med Peak E' Eusebio: 9.9 cm/sec MV A max eusebio: 101.2 cm/sec E/E' lat: 8.5 E/E' med: 11.4 MV E/A: 1.1 MV V2 max: 119.3 cm/sec MV P1/2t max eusebio: 120.0 cm/sec Ao V2 max: 189.7 cm/sec MV max P.7 mmHg MV P1/2t: 47.4 msec Ao max P.4 mmHg MV V2 mean: 74.6 cm/sec MV dec slope: 742.1 cm/sec2 MV mean P.6 mmHg MV V2 VTI: 24.4 cm MVA(P1/2t): 4.6 cm2 LV V1 max: 126.4 cm/sec PA V2 max: 135.4 cm/sec TR max eusebio: 255.5 cm/sec LV V1 max P.4 mmHg TR max P.1 mmHg Interpretation Summary The study was technically difficult. Contrast injection was performed. Left ventricular systolic function is normal. The estimated ejection fraction is 60 %. Trivial mitral valve insufficiency. Trivial tricuspid valve insufficiency. Unable to estimate RV systolic pressure/pulmonary artery pressure due to technically difficult study. No evidence for diastolic dysfunction. Ordering Physician: Matthew Cruz Referring Physician: Mitchell Ramirez Performed By: Gilbert Norman RCS
[2020-09-02] MEDS: Acetaminophen 500 MG Tablet 1000 MG PO ×2 (10:56→21:36)
[2020-09-02] MEDS: cycloBENZAPRine HCl 10 MG Tablet PO ×2 (10:56→20:33)
[2020-09-02 11:21] LABS: AST(SGOT) 8 U/L (15-37); Alanine Aminotransfer ALT/SGPT 13 U/L (13-56); Albumin, Serum 3.3 g/dL (3.2-5.0); Alkaline Phosphatase 97 U/L (45-117); Bilirubin, Direct 0.13 mg/dL (0.00-0.30); Globulin 4.1 g/dL (2.2-4.2); Protein, Total 7.4 g/dL (6.4-8.2)
[2020-09-02] MEDS: Ceftriaxone 1 GM/50 ML BAG IV (11:40)
[2020-09-02] MEDS: Ketorolac 15 MG/ML Vial IV ×3 (12:14→23:32)
--- NOTE | 2020-09-02 13:16 | PN_ITS ---
<Matthew Cruz - Last Filed: 09/02/20 13:16> Patient Problems: Active and Suspected Problems (Last Updated 08/19/20 @ 10:51 by Hannah Andre) Pulmonary emboli (Acute) demise (Acute) confirmed with US. plan cytotec OCD (obsessive compulsive disorder) (Acute) H/O section (Acute) Had emergency after ultrasound done for decreased movement. Did not labor. Will obtain records from delivery. Reason for Visit: PEs Subjective: Pt with SOB, conversational dyspnea, non productive cough. She has severe all over chest pain worse with deep breathing. She cannot take a deep breath 2/2 pain. She also complains of muscle spasms in her left abdomen. She has no fe leticia/chills. She does not feel palpitations. She remains tachy, but improved overnight. She has had intermittent LE edema and aching leg pain bilaterally since delivery. Vitals/I&O's: Vital Signs Temp Pulse Resp BP Pulse Ox 98.8 F 101 H 16 112/66 100 09/02/20 13:00 09/02/20 13:00 09/02/20 13:00 09/02/20 13:00 09/02/20 13:00 Oxygen Flow Rate (L/min) 2 Oxygen Delivery Method Nasal Cannula Weight: 219 lb 9.286 oz Body Mass Index (BMI) 35.4 Intake and Output for Last 24 Hours 08/31/20 09/01/20 09/02/20 23:59 23:59 23:59 Intake Total 2617.5 / 2617.5 Output Total 0 / 0 Balance 2617.5 / 2617.5 General: Alert, Oriented x3, Cooperative HEENT: Atraumatic, PERRLA, EOMI, Normocephalic Neck: Supple, No JVD, Negative Carotid Bruits Lungs: Clear to auscultation, Diminished, Short of Breath, Tachypneic, - - not taking deep breaths. Cardiovascular: Regular rate, No murmurs Abdomen: Bowel Sounds Present, Soft, Non Tender Extremities: No edema, Capillary Refill Less than 3 Seconds Skin: No rashes, No breakdown Musculoskeletal: No Tenderness to Palpation of Joints or Extremities Neurological: Cranial nerves II-XII grossly intact Psych/Mental Status: Normal Affect, Appropriate Microbiology Past 72 Hours 09/01/20 22:20 Mucosa - Nose SARS-CoV-2 Antigen (Rapid) - Final Laboratory Results 09/01/20 21:25: WBC 10.7, RBC 4.01 L, Hgb 11.7 L, Hct 35.9 L, MCV 89.5, MCH 29.2, MCHC 32.6, RDW Std Deviation 41.1, RDW Coeff of May 12.4, Plt Count 324, MPV 9.6, Immature Gran % (Auto) 0.500, Neut % (Auto) 77.2 H, Lymph % (Auto) 13.1 L, Gates % (Auto) 7.1, Eos % (Auto) 1.8, Baso % (Auto) 0.3, Absolute Neuts (auto) 8.3 H, Absolute Lymphs (auto) 1.40, Nucleated RBC % 0 09/01/20 21:25: Sodium 139, Potassium 3.7, Chloride 106, Carbon Dioxide 27.0, Anion Gap 6, BUN 15, Creatinine 0.83, Estim Creat Clear Calc 92.78, Est GFR (MDRD) Af Amer 104, Est GFR (MDRD) Non-Af 86, BUN/Creatinine Ratio 18.1, Glucose 114 H, Calcium 8.6 09/02/20 07:25: WBC 14.1 H, RBC 3.69 L, Hgb 10.9 L, Hct 34.3 L, MCV 93.0, MCH 29.5, MCHC 31.8 L, RDW Std Deviation 43.4, RDW Coeff of May 12.8, Plt Count 340, MPV 9.6, Immature Gran % (Auto) 0.600, Neut % (Auto) 86.1 H, Lymph % (Auto) 6.2 L, Gates % (Auto) 6.6, Eos % (Auto) 0.4, Baso % (Auto) 0.1, Absolute Neuts (auto) 12.1 H, Absolute Lymphs (auto) 0.88, Nucleated RBC % 0 09/02/20 07:25: Sodium 137, Potassium 4.0, Chloride 108 H, Carbon Dioxide 26.0, Anion Gap 3 L, BUN 14, Creatinine 0.80, Estim Creat Clear Calc 96.26, Est GFR (MDRD) Af Amer 108, Est GFR (MDRD) Non-Af 89, BUN/Creatinine Ratio 17.4, Glucose 117 H, Calcium 8.2 L 09/02/20 07:25: Troponin I < 0.015 09/02/20 07:25: B-Natriuretic Peptide 15.8 09/02/20 07:25: Total Bilirubin 0.30, Direct Bilirubin 0.13, AST 8 L, ALT 13, Alkaline Phosphatase 97, Total Protein 7.4, Albumin 3.3, Globulin 4.1 Current Medications Acetaminophen (Acetaminophen 500 Mg Tablet) 1,000 mg PO Q8 [facility] Last Admin: 09/02/20 10:56 Dose: 1,000 mg Documented by: Alprazolam (Alprazolam 0.25 Mg Tablet) 0.25 mg PO TID PRN PRN PRN Reason: ANXIETY Last Admin: 09/02/20 08:54 Dose: 0.25 mg Documented by: Apixaban (Apixaban 5 Mg Tablet) 10 mg PO BID [facility] Last Admin: 09/02/20 08:55 Dose: 10 mg Documented by: Citalopram Hydrobromide (Citalopram 40 Mg Tablet) 40 mg PO DAILY [facility] Last Admin: 09/02/20 08:55 Dose: 40 mg Documented by: Cyclobenzaprine HCl (Cyclobenzaprine Hcl 10 Mg Tablet) 10 mg PO TID PRN PRN PRN Reason: MUSCLE SPASM Last Admin: 09/02/20 10:56 Dose: 10 mg Documented by: Hydromorphone HCl (Hydromorphone 1 Mg/Ml Syringe) 1 mg IV Q3H PRN PRN PRN Reason: Pain Score 6-10 Azithromycin 500 mg/ Dextrose 255 mls @ 250 mls/hr IV Q24 [facility] Last Admin: 09/02/20 12:15 Dose: 250 mls/hr Documented by: Ceftriaxone Sodium (Rocephin) 1 gm in 50 mls @ 100 mls/hr IV Q24H [facility] Last Infusion: 09/02/20 12:15 Dose: Infused Documented by: Ketorolac Tromethamine (Ketorolac 15 Mg/Ml Vial) 15 mg IV Q6 [facility] Stop: 09/07/20 10:49 Last Admin: 09/02/20 12:14 Dose: 15 mg Documented by: Ondansetron HCl (Ondansetron 4 Mg/2 Ml Vial) 4 mg IV Q8H PRN PRN PRN Reason: NAUSEA/VOMITING Multivit/Folic Acid/Iron ( Vits Tablet) 1 tablet PO DAILY [facility] Last Admin: 09/02/20 08:56 Dose: 1 tablet Documented by: Sodium Chloride (0.9% Saline Lock 10 Ml Syringe) 10 - 40 ml IV UD PRN PRN Reason: SALINE FLUSH Last Admin: 09/02/20 12:15 Dose: 10 ml Documented by: STROKE Vital Signs/Narrative: Vital Signs Temp Pulse Resp BP Pulse Ox 09/02/20 13:00 98.8 F 101 H 16 112/66 100 09/02/20 12:00 97.8 F 102 H 26 H 113/60 100 09/02/20 10:00 97.5 F L 110 H 22 H 119/65 100 Medical Necessity - Tobacco Use Smoking Status: Former smoker Assessment/Plan All Active Problems (Last Updated 08/19/20 @ 10:51 by Hannah Andre) Pulmonary emboli (Acute) demise (Acute) Family history of muscular dystrophy (Acute) OCD (obsessive compulsive disorder) (Acute) IUGR (intrauterine growth restriction) in prior , (Acute) H/O section (Acute) (Acute) Supervision of high risk , antepartum (Acute) 1. Acute pulmonary emboli, suspect pulmonary infarcts - Continue eliquis. This is likely due to /recent delivery. Pulmonary medicine following. Trop neg. Echo pending. BNP neg. 100% on 2 lpm. wean as tolerated. She has severe chest pain and difficulty taking adequate breaths. 2. CAP - leukocytosis and now CXR with possible infiltrate. Will initiate rocephin/azithro. check urine antigens. not coughing up significant phlegm for culture. blood cultures pending. Covid neg. 3. 2 weeks post - unfortunately, her delivery was stillborn. She has a hx of post cardiomyopathy - echo pending as above. 4. Normocytic anemia - will check iron, folate, b12. vits continued. 5. Depression / Anxiety / PTSD -kelly juarez This patient was seen by Matthew Cruz PA-C under the supervision of Dr. Mcmanus. <Dylan Mcmanus - Last Filed: 09/02/20 17:08> Reason for Visit: Follow-up for bilateral PE about 2 weeks after stillborn Objective: Patient denies history of DVT or PE. Does not have history of antiphospholipid syndrome or other heavy atrial hypercoagulable disorder. Family history is negative negative for hypercoagulable disorder. She has 1 child which was born prematurely but she is doing fine now Recently had stillborn 2 weeks ago and then came to ED with shortness of breath and left upper back pain and found to have bilateral pulmonary embolism. She also coughed small pinkish sputum, mild hemoptysis. Complain of chest pain on deep breathing and coughing. Physical exam General: Alert, Oriented x3, Cooperative HEENT: Atraumatic, PERRLA, EOMI, Normocephalic Oral: No Gingival or Mucosal Lesions/ Ulcerations Neck: Supple, No JVD, Negative Carotid Bruits Lungs: Air entry diminished in bilateral lung bases. No crepitation/rhonchi. Tenderness on the left posterior lateral back. Cardiovascular: Regular rate, Regular Rhythm, Normal S1, Normal S2, No murmurs Abdomen: Bowel Sounds Present, Soft, Non Tender, Non-Distended : No renal angle tenderness. No suprapubic tenderness. Extremities: No edema, Capillary Refill Less than 3 Seconds Skin: No rashes, No breakdown Musculoskeletal: No Tenderness to Palpation of Joints or Extremities Neurological: Cranial nerves II-XII grossly intact, Deep Tendon Reflexes 2+/4 and Symmetrical, Neuro grossly intact Psych/Mental Status: Normal Affect, Appropriate. Vitals/I&O's: Vital Signs Temp Pulse Resp BP Pulse Ox 98.8 F 89 16 112/66 100 09/02/20 13:00 09/02/20 15:02 09/02/20 13:00 09/02/20 13:00 09/02/20 13:00 Oxygen Flow Rate (L/min) 2 Oxygen Delivery Method Nasal Cannula Weight: 219 lb 9.286 oz Body Mass Index (BMI) 35.4 Intake and Output for Last 24 Hours 08/31/20 09/01/20 09/02/20 23:59 23:59 23:59 Intake Total 2872.5 / 2872.5 Output Total 0 / 0 Balance 2872.5 / 2872.5 Microbiology Past 72 Hours 09/02/20 16:15 Urine Catheter - Kuo Legionella Antigen - Final 09/02/20 16:15 Urine Catheter - Kuo Streptococcus pneumoniae Antigen (M - Final 11/30/20 22:20 Mucosa - Nose SARS-CoV-2 Antigen (Rapid) - Final Laboratory Results 09/01/20 21:25: WBC 10.7, RBC 4.01 L, Hgb 11.7 L, Hct 35.9 L, MCV 89.5, MCH 29.2, MCHC 32.6, RDW Std Deviation 41.1, RDW Coeff of May 12.4, Plt Count 324, MPV 9.6, Immature Gran % (Auto) 0.500, Neut % (Auto) 77.2 H, Lymph % (Auto) 13.1 L, Gates % (Auto) 7.1, Eos % (Auto) 1.8, Baso % (Auto) 0.3, Absolute Neuts (auto) 8.3 H, Absolute Lymphs (auto) 1.40, Nucleated RBC % 0 09/01/20 21:25: Sodium 139, Potassium 3.7, Chloride 106, Carbon Dioxide 27.0, Anion Gap 6, BUN 15, Creatinine 0.83, Estim Creat Clear Calc 92.78, Est GFR (MDRD) Af Amer 104, Est GFR (MDRD) Non-Af 86, BUN/Creatinine Ratio 18.1, Glucose 114 H, Calcium 8.6 09/02/20 07:25: WBC 14.1 H, RBC 3.69 L, Hgb 10.9 L, Hct 34.3 L, MCV 93.0, MCH 29.5, MCHC 31.8 L, RDW Std Deviation 43.4, RDW Coeff of May 12.8, Plt Count 340, MPV 9.6, Immature Gran % (Auto) 0.600, Neut % (Auto) 86.1 H, Lymph % (Auto) 6.2 L, Gates % (Auto) 6.6, Eos % (Auto) 0.4, Baso % (Auto) 0.1, Absolute Neuts (auto) 12.1 H, Absolute Lymphs (auto) 0.88, Nucleated RBC % 0 09/02/20 07:25: Sodium 137, Potassium 4.0, Chloride 108 H, Carbon Dioxide 26.0, Anion Gap 3 L, BUN 14, Creatinine 0.80, Estim Creat Clear Calc 96.26, Est GFR (MDRD) Af Amer 108, Est GFR (MDRD) Non-Af 89, BUN/Creatinine Ratio 17.4, Glucose 117 H, Calcium 8.2 L 09/02/20 07:25: Troponin I < 0.015 09/02/20 07:25: B-Natriuretic Peptide 15.8 09/02/20 07:25: Total Bilirubin 0.30, Direct Bilirubin 0.13, AST 8 L, ALT 13, Alkaline Phosphatase 97, Total Protein 7.4, Albumin 3.3, Globulin 4.1 09/02/20 07:25: Vitamin B12 382 09/02/20 07:25: Iron 13 L, TIBC 321, Iron Saturation 4.0 L, Folate 15.90 Current Medications Acetaminophen (Acetaminophen 500 Mg Tablet) 1,000 mg PO Q8 [facility] Last Admin: 09/02/20 10:56 Dose: 1,000 mg Documented by: Alprazolam (Alprazolam 0.25 Mg Tablet) 0.25 mg PO TID PRN PRN PRN Reason: ANXIETY Last Admin: 09/02/20 08:54 Dose: 0.25 mg Documented by: Apixaban (Apixaban 5 Mg Tablet) 10 mg PO BID [facility] Last Admin: 09/02/20 08:55 Dose: 10 mg Documented by: Citalopram Hydrobromide (Citalopram 40 Mg Tablet) 40 mg PO DAILY [facility] Last Admin: 09/02/20 08:55 Dose: 40 mg Documented by: Cyclobenzaprine HCl (Cyclobenzaprine Hcl 10 Mg Tablet) 10 mg PO TID PRN PRN PRN Reason: MUSCLE SPASM Last Admin: 09/02/20 10:56 Dose: 10 mg Documented by: Hydromorphone HCl (Hydromorphone 1 Mg/Ml Syringe) 1 mg IV Q3H PRN PRN PRN Reason: Pain Score 6-10 Last Admin: 09/02/20 15:23 Dose: 1 mg Documented by: Azithromycin 500 mg/ Dextrose 255 mls @ 250 mls/hr IV Q24 [facility] Last Infusion: 09/02/20 13:18 Dose: Infused Documented by: Ceftriaxone Sodium (Rocephin) 1 gm in 50 mls @ 100 mls/hr IV Q24H [facility] Last Infusion: 09/02/20 12:15 Dose: Infused Documented by: Ketorolac Tromethamine (Ketorolac 15 Mg/Ml Vial) 15 mg IV Q6 [facility] Stop: 09/07/20 10:49 Last Admin: 09/02/20 12:14 Dose: 15 mg Documented by: Ondansetron HCl (Ondansetron 4 Mg/2 Ml Vial) 4 mg IV Q8H PRN PRN PRN Reason: NAUSEA/VOMITING Polysaccharide Iron Complex (Iron Polysaccharide Complex 150 Mg Capsule) 150 mg PO DAILYCM [facility] Multivit/Folic Acid/Iron ( Vits Tablet) 1 tablet PO DAILY [facility] Last Admin: 09/02/20 08:56 Dose: 1 tablet Documented by: Sodium Chloride (0.9% Saline Lock 10 Ml Syringe) 10 - 40 ml IV UD PRN PRN Reason: SALINE FLUSH Last Admin: 09/02/20 12:15 Dose: 10 ml Documented by: STROKE Vital Signs/Narrative: Vital Signs Pulse 09/02/20 15:02 89 Assessment/Plan This patient was seen in conjunction with Matthew PIERRE. I have independently interviewed and examined the patient and reviewed pertinent history, examination findings, laboratory and plan of management. I have reviewed the note and agree with the documented findings with the few additional points. In brief, patient is 30-year-old female admitted with acute bilateral pulmonary emboli with bilateral pulmonary opacities worse on the left suspicious of pulmonary infarct. Patient denies any fever or chills but has leukocytosis therefore empirically covered with antibiotic for community-acquired pneumonia. Denies yellow-colored sputum production mild hemoptysis. COVID-19 rapid antigen negative. Urinary antigens are negative. Troponin and BNP normal. B12 territory 2. I have discussed my assessment with Matthew PIERRE and orders have been reviewed. 2D echo was done and reported normal RV size and systolic function with trivial TR but unable to estimate RVSP. Left ventricular systolic function is normal. The estimated ejection fraction is 60 %. Trivial mitral valve insufficiency. Trivial tricuspid valve insufficiency. No evidence for diastolic dysfunction. Other comorbidities as mentioned as mentioned above. Clinical Impression(s) from Imaging Studies Chest CTA 09/01/20 21:40 IMPRESSION: Bilateral pulmonary emboli in both descending pulmonary arteries. Widespread bilateral pulmonary opacities worse on the left. Chest X-Ray 09/02/20 05:55 IMPRESSION: Left basilar atelectasis and/or infiltrate with mild increased markings at the right lung base. Inpatient E&M: 30115 Subs Hosp L2
[2020-09-02 14:07] LABS: Vitamin B12 382 pg/mL (211-911)
[2020-09-02 14:17] LABS: Iron 13 ug/dL (50-170); Iron Binding Capacity,Total 321 ug/dL (250-450)
[2020-09-02] MEDS: Sodium Ferric Gluconat 250 MG in 0.9% Normal Saline 250 ML 135 MG IV (15:22)
--- NOTE | 2020-09-02 15:26 | CON.PCM_ITS ---
Problem List (1) Pulmonary emboli Status: Acute (2) demise Status: Acute Comment: confirmed with US. plan cytotec (3) Depression affecting Status: Chronic Comment: Patient with history of depression and anxiety. Was taken off medication when found out she was , but having severe depression. Celexa 20mg ordered 06/26 (4) PTSD (post-traumatic stress disorder) Status: Chronic Comment: After last delivery (5) JOSE M (generalized anxiety disorder) Status: Chronic (6) OCD (obsessive compulsive disorder) Status: Acute (7) H/O section Status: Acute Comment: Had emergency after ultrasound done for decreased movement. Did not labor. Will obtain records from delivery. 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 FOB negative. Reason for Consult Date of Consultation: 09/02/20 Reason for Consultation: PE History of Present Illness: The patient is a 30 year old F, with past medical history listed below, who presented [place] on 09/01/2020 secondary to sudden onset of left mid back pain that radiated to her left shoulder. Patient states that it had started 2 days prior to presentation to the ER, but felt it was progressing, so came to the ER for evaluation. Patient stated that the pain came in waves and initially responded to Aleve. Patient had tried Percocet and Tylenol without significant improvement. Patient described the pain is pleuritic. Patient does report that she had a delivery of a stillborn followed by D&C on 17 August and has been depressed and decreased activity since that time. In the ER, patient was noted to be 97% saturating on room air with a pulse of 109. Laboratory work-up showed a white blood cell count of 10.7 with hemoglobin of 11.7 and normal chemistries. CTA of the chest showed bilateral pulmonary emboli inferiorly with widespread pulmonary opacities that were worse on the left. Patient received narcotics for pain control, Levaquin and supplemental oxygen. Patient was given Eliquis and admitted to the hospital for further evaluation. On my evaluation, patient was complaining of significant left-sided chest pain. Patient's oxygen had remained stable, but she felt that it was impossible to get a deep breath. Patient states that she does not have a history of previous clots. Patient is unaware of any previous lung pathology such as asthma or COPD . Patient does admit to occasional marijuana use, but denies other illicit drugs. Patient does report a history of smoking, but quit when she became . Review of systems otherwise negative from a constitutional, HEENT, respiratory, cardiovascular, GI, genitourinary, musculoskeletal, skin, neurologic, psychiatric and hematologic system unless stated above. Past Medical History Past Medical History (Chronic Problems): Chronic Problems (Last Updated 08/19/20 @ 10:51 by Hannah Andre) Depression affecting (Chronic) Patient with history of depression and anxiety. Was taken off medication when found out she was , but having severe depression. Celexa 20mg ordered 06/26 PTSD (post-traumatic stress disorder) (Chronic) After last delivery JOSE M (generalized anxiety disorder) (Chronic) Cardiomyopathy (Chronic) Reports developed while in hospital after last delivery. Was transferred to cardiac floor. Did not have to follow with cardiology after last delivery. Will get records. 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 FOB negative. Medical History: Medical History (Last Updated 08/19/20 @ 10:51 by Hannah Andre) PTSD (post-traumatic stress disorder) (Chronic) F43.10 After last delivery JOSE M (generalized anxiety disorder) (Chronic) F41.1 OCD (obsessive compulsive disorder) (Acute) F42.9 Cardiomyopathy (Chronic) I42.9 Reports developed while in hospital after last delivery. Was transferred to cardiac floor. Did not have to follow with cardiology after last delivery. Will get records. cardio referral IUGR (intrauterine growth restriction) in prior , (Acute) O09.299 With last Depression F32.9 demise 22 weeks Allergies adhesive tape Adverse Reaction (Intermediate, Verified 09/01/20 20:18) Other CONTACT IRRITATION oxycodone [From Percocet] Adverse Reaction (Mild, Verified 09/01/20 20:18) Itching Home Medications: Ambulatory Orders Medication Instructions Recorded multivitamin no.47-iron fum 27 1 cap PO DAILY 05/28/20 mg-folate no.1 1 mg-dha 300 mg capsule Citalopram [Celexa] 40 mg PO DAILY 08/15/20 Naproxen [Naprosyn] 250 - 500 mg PO Q8H PRN PRN #30 tab 08/17/20 Surgical History: Surgical History (Last Updated 08/19/20 @ 10:51 by Hannah Andre) H/O section Onset Date: ~2014 Z98.891 ltcs Status post dilation and curettage Z98.890 retained POC Surgical History: noncontributory Smoking Status: Former smoker - *Family History Maternal Family History: Family History (Last Reviewed 08/14/20 @ 14:19 by Macie Andre) Mother Usher syndrome History Items: No pertinent history Review of Systems Comment: See HPI Patient Problems: Active and Suspected Problems (Last Updated 08/19/20 @ 10:51 by Hannah Andre) Pulmonary emboli (Acute) OCD (obsessive compulsive disorder) (Acute) Objective: All imaging was personally reviewed. Agree with formal interpretation. Infil trate appears to be a possible pulmonary infarction. Patient does not have a history of previous pulmonary function testing. Patient did have an echocardiogram completed during this hospitalization showed an EF of 60%, but an inability to quantify pulmonary artery pressures. - Physical Exam Vitals/I&O's: Vital Signs Temp Pulse Resp BP Pulse Ox 37.1 C 101 H 16 112/66 100 09/02/20 13:00 09/02/20 13:00 09/02/20 13:00 09/02/20 13:00 09/02/20 13:00 Oxygen Flow Rate (L/min) 2 Oxygen Delivery Method Nasal Cannula Weight: 99.6 kg Body Mass Index (BMI) 35.4 Intake and Output for Last 24 Hours 08/31/20 09/01/20 09/02/20 23:59 23:59 23:59 Intake Total 2872.5 / 2872.5 Output Total 0 / 0 Balance 2872.5 / 2872.5 General: Alert, Cooperative, - - Moderate distress. Actively splinting left chest with deep inhalation HEENT: Atraumatic, PERRLA, EOMI, Normocephalic, - - Scleral injection without icterus Oral: Moist Mucosa, No Gingival or Mucosal Lesions/ Ulcerations Neck: Supple, No JVD, No Nodes, Trachea Midline Lungs: No wheeze, No rales, Diminished, Rhonchi - Left base Cardiovascular: Normal S1, Normal S2, No murmurs, No rub noted, No Gallop, Tachycardic Abdomen: Bowel Sounds Present, Soft, Non Tender, Non-Distended, Obese Extremities: No clubbing, No cyanosis, Edema - Trace to 1+ lower extremities Skin: No rashes, No breakdown Musculoskeletal: No Tenderness to Palpation of Joints or Extremities Lymphatic: No Cervical, Supraclavicular, or Inguinal Adenopathy Neurological: Cranial nerves II-XII grossly intact, Neuro grossly intact, Motor Exam 5/5 strength throughout Psych/Mental Status: Alert and oriented to time, place, person, mood and affect Microbiology Past 72 Hours 09/01/20 22:20 Mucosa - Nose SARS-CoV-2 Antigen (Rapid) - Final Laboratory Results 09/01/20 21:25: WBC 10.7, RBC 4.01 L, Hgb 11.7 L, Hct 35.9 L, MCV 89.5, MCH 29.2, MCHC 32.6, RDW Std Deviation 41.1, RDW Coeff of May 12.4, Plt Count 324, MPV 9.6, Immature Gran % (Auto) 0.500, Neut % (Auto) 77.2 H, Lymph % (Auto) 13.1 L, [place] % (Auto) 7.1, Eos % (Auto) 1.8, Baso % (Auto) 0.3, Absolute Neuts (auto) 8.3 H, Absolute Lymphs (auto) 1.40, Nucleated RBC % 0 09/01/20 21:25: Sodium 139, Potassium 3.7, Chloride 106, Carbon Dioxide 27.0, Anion Gap 6, BUN 15, Creatinine 0.83, Estim Creat Clear Calc 92.78, Est GFR (MDRD) Af Amer 104, Est GFR (MDRD) Non-Af 86, BUN/Creatinine Ratio 18.1, Glucose 114 H, Calcium 8.6 09/02/20 07:25: WBC 14.1 H, RBC 3.69 L, Hgb 10.9 L, Hct 34.3 L, MCV 93.0, MCH 29.5, MCHC 31.8 L, RDW Std Deviation 43.4, RDW Coeff of May 12.8, Plt Count 340, MPV 9.6, Immature Gran % (Auto) 0.600, Neut % (Auto) 86.1 H, Lymph % (Auto) 6.2 L, [place] % (Auto) 6.6, Eos % (Auto) 0.4, Baso % (Auto) 0.1, Absolute Neuts (auto) 12.1 H, Absolute Lymphs (auto) 0.88, Nucleated RBC % 0 09/02/20 07:25: Sodium 137, Potassium 4.0, Chloride 108 H, Carbon Dioxide 26.0, Anion Gap 3 L, BUN 14, Creatinine 0.80, Estim Creat Clear Calc 96.26, Est GFR (MDRD) Af Amer 108, Est GFR (MDRD) Non-Af 89, BUN/Creatinine Ratio 17.4, Glucose 117 H, Calcium 8.2 L 09/02/20 07:25: Troponin I < 0.015 09/02/20 07:25: B-Natriuretic Peptide 15.8 09/02/20 07:25: Total Bilirubin 0.30, Direct Bilirubin 0.13, AST 8 L, ALT 13, Alkaline Phosphatase 97, Total Protein 7.4, Albumin 3.3, Globulin 4.1 09/02/20 07:25: Vitamin B12 382 09/02/20 07:25: Iron 13 L, TIBC 321, Iron Saturation 4.0 L, Folate 15.90 Current Medications Acetaminophen (Acetaminophen 500 Mg Tablet) 1,000 mg PO Q8 [facility] Last Admin: 09/02/20 10:56 Dose: 1,000 mg Documented by: Alprazolam (Alprazolam 0.25 Mg Tablet) 0.25 mg PO TID PRN PRN PRN Reason: ANXIETY Last Admin: 09/02/20 08:54 Dose: 0.25 mg Documented by: Apixaban (Apixaban 5 Mg Tablet) 10 mg PO BID [facility] Last Admin: 09/02/20 08:55 Dose: 10 mg Documented by: Citalopram Hydrobromide (Citalopram 40 Mg Tablet) 40 mg PO DAILY [facility] Last Admin: 09/02/20 08:55 Dose: 40 mg Documented by: Cyclobenzaprine HCl (Cyclobenzaprine Hcl 10 Mg Tablet) 10 mg PO TID PRN PRN PRN Reason: MUSCLE SPASM Last Admin: 09/02/20 10:56 Dose: 10 mg Documented by: Hydromorphone HCl (Hydromorphone 1 Mg/Ml Syringe) 1 mg IV Q3H PRN PRN PRN Reason: Pain Score 6-10 Last Admin: 09/02/20 15:23 Dose: 1 mg Documented by: Azithromycin 500 mg/ Dextrose 255 mls @ 250 mls/hr IV Q24 [facility] Last Infusion: 09/02/20 13:18 Dose: Infused Documented by: Ceftriaxone Sodium (Rocephin) 1 gm in 50 mls @ 100 mls/hr IV Q24H [facility] Last Infusion: 09/02/20 12:15 Dose: Infused Documented by: Ferric Sodium Gluconate Complex 250 mg/ Sodium Chloride 270 mls @ 135 mls/hr IV X1 ONE Stop: 09/02/20 16:59 Last Admin: 09/02/20 15:22 Dose: 135 mls/hr Documented by: Ketorolac Tromethamine (Ketorolac 15 Mg/Ml Vial) 15 mg IV Q6 MARE Stop: 09/07/20 10:49 Last Admin: 09/02/20 12:14 Dose: 15 mg Documented by: Ondansetron HCl (Ondansetron 4 Mg/2 Ml Vial) 4 mg IV Q8H PRN PRN PRN Reason: NAUSEA/VOMITING Polysaccharide Iron Complex (Iron Polysaccharide Complex 150 Mg Capsule) 150 mg PO DAILYCM MARE Multivit/Folic Acid/Iron ( Vits Tablet) 1 tablet PO DAILY [facility] Last Admin: 09/02/20 08:56 Dose: 1 tablet Documented by: Sodium Chloride (0.9% Saline Lock 10 Ml Syringe) 10 - 40 ml IV UD PRN PRN Reason: SALINE FLUSH Last Admin: 09/02/20 12:15 Dose: 10 ml Documented by: Clinical Impression(s) from Imaging Studies Chest CTA 09/01/20 21:40 IMPRESSION: Bilateral pulmonary emboli in both descending pulmonary arteries. Widespread bilateral pulmonary opacities worse on the left. N.B. : The above information has been verbally conveyed by Lane Montoya MD to Claudia Olivares MD, on 09/01/2020 22:13:34 (ET). Electronically Signed: Lane Montoya MD at 22:15 EST , Service support , ADDENDUM: 09/01/20 2223 IMPRESSION: Bilateral pulmonary emboli in both descending pulmonary arteries. Widespread bilateral pulmonary opacities worse on the left. N.B. : The above information has been verbally conveyed by Lane Montoya MD to Claudia Olivares MD, on 09/01/2020 22:13:34 (ET). Electronically Signed: Lane Montoya MD at 22:15 EST , Service support , Chest X-Ray 09/02/20 05:55 IMPRESSION: Left basilar atelectasis and/or infiltrate with mild increased markings at the right lung base. Electronically Signed: Kuldeep Elvin, at 8:22 EST , Service support , Assessment/Plan All Active Problems (Last Updated 08/19/20 @ 10:51 by Hannah Andre) Pulmonary emboli (Acute) demise (Acute) Family history of muscular dystrophy (Acute) OCD (obsessive compulsive disorder) (Acute) IUGR (intrauterine growth restriction) in prior , (Acute) H/O section (Acute) (Acute) Supervision of high risk , antepartum (Acute) RECOMMENDATIONS: 1. Agree with empiric antibiotics 2. Continue anticoagulation 3. NSAIDs for pleuritic chest pain 4. Anticoagulation for 3 to 6 months 5. Hypercoagulable panel once off anticoagulation for a month 6. Walking oximetry prior to discharge IMPRESSIONS: 1. Acute hypoxic respiratory insufficiency secondary to acute PE Clinical suspicion for an element of infarct related to pulmonary emboli. Agree with covering for acute community-acquired pneumonia as patient does have a leukocytosis. Patient has not been able to produce sputum for culture, but blood cultures were obtained. Covid was negative. would qualify for a hypercoagulable state, but given patient's history of stillbirth, eventual evaluation for hypercoagulable state would be appropriate. Stressed to the patient the importance of incentive spirometer to avoid atelectasis and progression of disease. NSAIDs may work better for pain control and will not affect respiratory drive like Dilaudid. 2. Normocytic anemia/depression/anxiety/PTSD/recent stillbirth Complicates care, management, recovery and prognosis. Clinical suspicion for vitamin associated anemia. Patient is not having significant hemoptysis. Okay to continue with baseline medications. Inpatient E&M: 87480 Init Hosp L3
[2020-09-03 03:03] VITALS: PULSE 92
[2020-09-03] MEDS: HYDROmorphone 1 MG/ML Syringe IV ×3 (04:23→10:56)
[2020-09-03] MEDS: 0.9% Saline Lock 10 ML Syringe IV ×2 (04:23→05:47)
[2020-09-03 05:36] VITALS: BP 121/53; PULSE 99; RESP 19; TEMP 37.4; O2SAT 100
[2020-09-03] MEDS: Ketorolac 15 MG/ML Vial IV ×2 (05:47→12:14)
[2020-09-03] MEDS: Acetaminophen 500 MG Tablet 1000 MG PO ×2 (05:47→13:39)
--- NOTE | 2020-09-03 05:54 | NURSING ---
Pt states okay to give her mother (Meena Ariasman) information.
[2020-09-03 07:01] VITALS: PULSE 97
[2020-09-03 07:03] LABS: Absolute Lymphocyte Count 0.92 X10^3/uL (0.83-4.51); Basophil# 0.02 X10^3/uL; Basophil% 0.2 % (0-1); Eosinophil# 0.11 X10^3/uL; Hematocrit 31.8 % (37-47); Lymphocyte # 0.92 X10^3/ul (4.0); Lymphocyte % 8.4 % (19-41); Mean Corp Hgb Conc 31.4 g/dL (32-36); Mean Corpuscular Hgb 29.4 pg (27.0-32.0); Mean Corpuscular Volume 93.5 fL (81-99); Mean Platelet Vol. 9.8 fl (6.2-12.0); Monocyte# 0.78 X10^3/uL; Monocyte% 7.2 % (0-10); NRBC Flagged by Analyzer 0 % (0-5); Neutrophil # 9.01 X10^3/uL (2.7-7.7); Neutrophil % 82.7 % (47-70); Platelet Count 308 K/mm3 (150-450); RBC Distribution Width CV 12.8 % (11.6-14.6); RBC Distribution Width SD 43.6 fl (35.1-43.9); White Blood Count 10.9 K/mm3 (4.4-11.0)
[2020-09-03] MEDS: Iron Polysaccharide Complex 150 MG CAPSULE PO (07:55)
[2020-09-03] MEDS: Citalopram 40 MG TABLET PO (09:30)
[2020-09-03] MEDS: Prenatal Vits Tablet 1 TABLET PO (09:30)
[2020-09-03] MEDS: APIXABAN 5 MG TABLET 10 MG PO (09:30)
[2020-09-03] MEDS: cycloBENZAPRine HCl 10 MG Tablet PO (09:35)
[2020-09-03] MEDS: ALPRAZolam 0.25 MG Tablet PO (09:52)
--- NOTE | 2020-09-03 09:52 | CASEMGMT ---
SW met with patient. Introduced self and role at [facility]. SW asked patient how she was doing. She said she is managing aside from being in the hospital. She said her family is supportive. Her mom has been keeping her 5 year old since she lost her baby. Patient said it was too hard for her (patient) to deal and cope with everything. SW asked if she has been able to set up a counseling appt and she said she has put it off. She said with her Depression she tends to procrastinate. SW asked if she would like SW to schedule her an appt. She said that would be great. She had no preference for agency as she is new to the area. SW told her most of the agencies around here are doing telehealth and she said she would prefer this. She said she will also need to see a Psychiatrist. SW told her SW will work on setting up an appt for her. ANGEL viewed [place] website for in network agencies. ANGEL called a few and ended up going with [facility] in [place]. ([phone]). ANGEL scheduled an appt for her for TueSep 10 at 12:00p with Jojo Lehman. [facility] texted and sent an email to patient about her appt. ANGEL also wrote down the information and spoke with patient about appt. ANGEL told her they do not have a Psychiatrist, but they refer to local Psychiatrists. She thanked ANGEL for the help. Plan: d/c home with counseling appt TueSep 10 at 12:00 p via telehealth. Amber RUBIO MSW
[2020-09-03 11:00] VITALS: BP 112/58; PULSE 84; RESP 20; TEMP 36.9; O2SAT 98
[2020-09-03] MEDS: Ceftriaxone 1 GM/50 ML BAG IV (11:01)
--- NOTE | 2020-09-03 11:10 | PCM.DC ---
- Discharge Diagnoses Current Active Problems: Current Active and Chronic Problems (Last Updated 08/19/20 @ 10:51 by Hannah Andre) Pulmonary emboli (Acute) demise (Acute) confirmed with US. plan cytotec Depression affecting (Chronic) Patient with history of depression and anxiety. Was taken off medication when found out she was , but having severe depression. Celexa 20mg ordered 06/26 PTSD (post-traumatic stress disorder) (Chronic) After last delivery JOSE M (generalized anxiety disorder) (Chronic) OCD (obsessive compulsive disorder) (Acute) Cardiomyopathy (Chronic) Reports developed while in hospital after last delivery. Was transferred to cardiac floor. Did not have to follow with cardiology after last delivery. Will get records. cardio referral H/O section (Acute) Had emergency after ultrasound done for decreased movement. Did not labor. Will obtain records from delivery. Cystic fibrosis carrier (Chronic) Patient carrier. FOB negative. You will use the following diet at home:: No restrictions Your food should be the consistency of: Regular Your liquids should be the consistency of: Regular/Thin Discharge Activity: Return to Normal Activity, May not drive while taking narcotic pain medications. Call your doctor if you observe: Fever of 101 or Higher, Shortness of breath Allergies/Adverse Reactions: Allergies adhesive tape Adverse Reaction (Intermediate, Verified 09/01/20 20:18) Other CONTACT IRRITATION oxycodone [From Percocet] Adverse Reaction (Mild, Verified 09/01/20 20:18) Itching Medications to take at Discharge multivitamin no.47-iron fum 27 mg-folate no.1 1 mg-dha 300 mg capsule 1 cap PO DAILY 05/28/20 Citalopram [Celexa] 40 mg PO DAILY 08/15/20 Acetaminophen [Pain Relief] 650 mg PO Q6H PRN PRN #1 tablet 09/03/20 Apixaban [Eliquis] 10 mg PO BID #66 tab 09/03/20 Azithromycin 500 mg PO DAILY #1 tab 09/03/20 Cefdinir [Omnicef [equiv]] 300 mg PO Q12H #6 cap 09/03/20 Iron Polysaccharide Complex [Ferrex 150] 150 mg PO DAILYCM #30 cap 09/03/20 Naproxen [Naprosyn] 500 mg PO BID PRN PRN #1 tablet 09/03/20 traMADol [Ultram] 50 mg PO Q4H PRN PRN 3 Days #18 tablet 09/03/20 The following prescriptions were given: Azithromycin 500 mg PO DAILY #1 tab Transmission Status: Pending to [address] Apixaban [Eliquis] 10 mg PO BID #66 tab Transmission Status: Pending to [address] Iron Polysaccharide Complex [Ferrex 150] 150 mg PO DAILYCM #30 cap Transmission Status: Pending to [address] Naproxen [Naprosyn] 500 mg PO BID PRN PRN #1 tablet PRN Reason: Pain Score 1-10 Cefdinir [Omnicef [equiv]] 300 mg PO Q12H #6 cap Transmission Status: Pending to [address] Acetaminophen [Pain Relief] 650 mg PO Q6H PRN PRN #1 tablet PRN Reason: Pain Score 1-10 traMADol [Ultram] 50 mg PO Q4H PRN PRN 3 Days #18 tablet PRN Reason: Pain Score 4-10 Transmission Status: Received by [address] Primary Care Physician: Care Physician,No Primary [Primary Care Provider] - Please follow up with your Primary Care Physician in: 1-2 weeks Test Results: Test results from this visit will be discussed in further detail at your follow-up appointment, if applicable. Please Follow Up With: Jojo Lehman with [facility] When: Tuesday Please Follow Up With: LULA When: 1 week Please Follow Up With: Tessa Stevenson NP, [facility] When: 2 weeks Proposed Discharge Date: 09/03/20
[2020-09-03 11:23] VITALS: O2SAT 96; O2SAT 98
--- NOTE | 2020-09-03 12:08 | CASEMGMT ---
Addendum entered by Rodney Marquis 09/03/20 12:13: Pt does not have a PCP. Discussed importance of getting established w/a PCP for f/u post discharge, for PE, and management of Eliquis/refills. She voices understanding. Pt provided w/list of local PCP's. Original Note: THAD VICTOR NOTE: Pt being discharged home today and will be going home on Eliquis which has been e-scribed to [facility] in [place]. Call placed to [facility] at this time. Per pharmacy, Eliquis does not require prior-auth and pt has no co-pay. Amb pulse ox has been completed. Pt does not qualify for home O2. Pt is aware. THAD VICTOR to room to discuss discharge planning. 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 She was informed that per [facility] they state it was processed and that no prior-auth is required at this time and that she will not have a co-pay. Pt voices understanding. Pt provided with this THAD VICTOR business card/contact info and instructed her to contact THAD VICTOR if she has any difficulty/problems when picking up her prescriptions and further assistance can be given at that time. She voices appreciations. She denies having any concerns with going home @ discharge. She denies needs/questions at this time. Tyree MEDINA RN, CM
--- NOTE | 2020-09-03 12:15 | PHA.DC.MC ---
Pharmacy Service has performed discharge medication reconciliation and counseling for this patient. 1. APIXABAN 10MG PO BID X 11 DOSES, THEN 5MG PO BID THEREAFTER 2. AZITHROMYCIN 500MG PO X1 TOMORROW 3. CEFDINIR 300MG PO Q12 X 3 DAYS 4. FERREX 150MG PO DAILYCM 5. TRAMADOL 50MG PO Q4H PRN PAIN 4-10 The patient's discharge medication list was reviewed for discrepancies and discrepancies were resolved. Home Medications multivitamin no.47-iron fum 27 mg-folate no.1 1 mg-dha 300 mg capsule 1 cap PO DAILY 05/28/20 Citalopram [Celexa] 40 mg PO DAILY 08/15/20 Acetaminophen [Pain Relief] 650 mg PO Q6H PRN PRN #1 tab 09/03/20 Apixaban [Eliquis] 10 mg PO BID #66 tab 09/03/20 Azithromycin 500 mg PO DAILY #1 tab 09/03/20 Cefdinir [Omnicef [equiv]] 300 mg PO Q12H #6 cap 09/03/20 Iron Polysaccharide Complex [Ferrex 150] 150 mg PO DAILYCM #30 cap 09/03/20 Naproxen [Naprosyn] 500 mg PO BID PRN PRN #1 tab 09/03/20 traMADol [Ultram] 50 mg PO Q4H PRN PRN 3 Days #18 tab 09/03/20 The patient was counseled on the following discharge medications and changes in medications for homegoing were reviewed. The Reason for Use, instructions for use, and potential side effects were reviewed for all new medications. The patient's questions regarding all of their medications were answered. The patient was able to verbally demonstrate an understanding of their discharge medications.
--- NOTE | 2020-09-03 12:38 | PCM.DC.SUM ---
<Matthew Cruz - Last Filed: 09/03/20 12:38> Discharge Date and Diagnosis - Problem List Patient Problems: Active and Suspected Problems (Last Updated 08/19/20 @ 10:51 by Hannah Andre) Pulmonary emboli (Acute) demise (Acute) confirmed with US. plan cytotec OCD (obsessive compulsive disorder) (Acute) H/O section (Acute) Had emergency after ultrasound done for decreased movement. Did not labor. Will obtain records from delivery. Date of Admission: 09/01/20 Date of Discharge: 09/03/20 - Primary Discharge Diagnosis Acute Problems: Active Problems (Last Updated 08/19/20 @ 10:51 by Hannah Andre) Bilateral PE with pulmonary infarct Acute community acquired pneumonia Iron def anemia , still born delivery, s/p D&C Anx/Depression - Secondary Discharge Diagnosis Chronic Problems: Chronic Problems (Last Updated 08/19/20 @ 10:51 by Hannah Andre) Depression affecting (Chronic) Patient with history of depression and anxiety. Was taken off medication when found out she was , but having severe depression. Celexa 20mg ordered 06/26 PTSD (post-traumatic stress disorder) (Chronic) After last delivery JOSE M (generalized anxiety disorder) (Chronic) Cardiomyopathy (Chronic) Reports developed while in hospital after last delivery. Was transferred to cardiac floor. Did not have to follow with cardiology after last delivery. Will get records. 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 FOB negative. Hospital Course and Treatment Imaging Results: CT/CTA Chest W/WO Contrast IMPRESSION: Bilateral pulmonary emboli in both descending pulmonary arteries. Widespread bilateral pulmonary opacities worse on the left. RAD/Chest PA and Lateral IMPRESSION: Left basilar atelectasis and/or infiltrate with mild increased markings at the right lung base. 2D TTE: Interpretation Summary The study was technically difficult. Contrast injection was performed. Left ventricular systolic function is normal. The estimated ejection fraction is 60 %. Trivial mitral valve insufficiency. Trivial tricuspid valve insufficiency. Unable to estimate RV systolic pressure/pulmonary artery pressure due to technically difficult study. No evidence for diastolic dysfunction. Consults: Johnathan - Pulmonolary Operations: None Procedures: 2-D Echocardiogram Summary of Care Provided: Hospital Course: The patient is a 30 year old F with pmhx of recent delivery approx 2 weeks prior, stillborn, followed by D&C, hx of issues with first as well, hx anxiety/depression, who presented to the ER with chest pain, back pain, and SOB. She was found to have bilateral PEs on CTA chest and probably pulmonary infarct. Troponin and BNP were negative. She was placed on eliquis and admitted to the PCU. She had significant sinus tachycardia on the monitor. Pulmonary was consulted. She had increased leukcoytosis and a follow up CXR showed probable infiltrate R lung base. She was started on rocephin and azithromycin for CAP. She underwent an echocardiogram which was relatively normal - results as above. She was weaned off O2 with rest and activity. She had significant anemia - iron, folate, and b12 were checked. She was iron deficienct so she was started on venofer and oral daily iron supplement. She was transitioned to oral abx. She will continue eliquis. She will need hypercoagulble workup when appropriate as she has had multiple pregnancies with issues. She was advised to follow up with OBGYN in 1 week, pulm in 2 weeks, PCP 1-2 weeks, and with a counselor with [facility] this Tuesday. She was discharged home in stable condition. This patient was seen by Matthew Cruz PA-C under the supervision of Dr. Mcmanus. [] Patient Problems: Active and Suspected Problems (Last Updated 08/19/20 @ 10:51 by Hannah Andre) Pulmonary emboli (Acute) demise (Acute) confirmed with US. plan cytotec OCD (obsessive compulsive disorder) (Acute) H/O section (Acute) Had emergency after ultrasound done for decreased movement. Did not labor. Will obtain records from delivery. - Physical Exam Vitals/I&O's: Vital Signs Temp Pulse Resp BP Pulse Ox 98.5 F 84 20 H 112/58 L 98 09/03/20 11:00 09/03/20 11:00 09/03/20 11:00 09/03/20 11:00 09/03/20 11:23 Oxygen Flow Rate (L/min) 2 Oxygen Delivery Method Room Air Weight: 219 lb 9.286 oz Body Mass Index (BMI) 35.4 Intake and Output for Last 24 Hours 09/01/20 09/02/20 09/03/20 23:59 23:59 23:59 Intake Total 4142.5 / 4142.5 675 / 675 Output Total 800 / 800 450 / 450 Balance 3342.5 / 3342.5 225 / 225 General: Alert, Oriented x3, Cooperative HEENT: Atraumatic, PERRLA, EOMI, Normocephalic Neck: Supple, No JVD, Negative Carotid Bruits Lungs: Clear to auscultation, Normal air movement, Tachypneic Cardiovascular: Regular rate, No murmurs Abdomen: Bowel Sounds Present, Soft, Non Tender Extremities: No edema, Capillary Refill Less than 3 Seconds Skin: No rashes, No breakdown Musculoskeletal: No Tenderness to Palpation of Joints or Extremities Neurological: Cranial nerves II-XII grossly intact Psych/Mental Status: Anxious, Alert and oriented to time, place, person, mood and affect Microbiology Past 72 Hours 09/02/20 16:15 Urine Catheter - Kuo Legionella Antigen - Final 09/02/20 16:15 Urine Catheter - Kuo Streptococcus pneumoniae Antigen (M - Final 09/01/20 22:20 Mucosa - Nose SARS-CoV-2 Antigen (Rapid) - Final Laboratory Results 09/02/20 07:25: Vitamin B12 382 09/02/20 07:25: Iron 13 L, TIBC 321, Iron Saturation 4.0 L, Folate 15.90 09/03/20 05:45: WBC 10.9, RBC 3.40 L, Hgb 10.0 L, Hct 31.8 L, MCV 93.5, MCH 29.4, MCHC 31.4 L, RDW Std Deviation 43.6, RDW Coeff of May 12.8, Plt Count 308, MPV 9.8, Immature Gran % (Auto) 0.500, Neut % (Auto) 82.7 H, Lymph % (Auto) 8.4 L, [place] % (Auto) 7.2, Eos % (Auto) 1.0, Baso % (Auto) 0.2, Absolute Neuts (auto) 9.0 H, Absolute Lymphs (auto) 0.92, Nucleated RBC % 0 Current Medications Acetaminophen (Acetaminophen 500 Mg Tablet) 1,000 mg PO Q8 MARE Last Admin: 09/03/20 05:47 Dose: 1,000 mg Documented by: Alprazolam (Alprazolam 0.25 Mg Tablet) 0.25 mg PO TID PRN PRN PRN Reason: ANXIETY Last Admin: 09/03/20 09:52 Dose: 0.25 mg Documented by: Apixaban (Apixaban 5 Mg Tablet) 10 mg PO BID PENDING SALE TO [facility] Last Admin: 09/03/20 09:30 Dose: 10 mg Documented by: Citalopram Hydrobromide (Citalopram 40 Mg Tablet) 40 mg PO DAILY PENDING SALE TO [facility] Last Admin: 09/03/20 09:30 Dose: 40 mg Documented by: Cyclobenzaprine HCl (Cyclobenzaprine Hcl 10 Mg Tablet) 10 mg PO TID PRN PRN PRN Reason: MUSCLE SPASM Last Admin: 09/03/20 09:35 Dose: 10 mg Documented by: Hydromorphone HCl (Hydromorphone 1 Mg/Ml Syringe) 1 mg IV Q3H PRN PRN PRN Reason: Pain Score 6-10 Last Admin: 09/03/20 10:56 Dose: 1 mg Documented by: Azithromycin 500 mg/ Dextrose 255 mls @ 250 mls/hr IV Q24 PENDING SALE TO [facility] Last Infusion: 09/03/20 11:02 Dose: Infused Documented by: Ceftriaxone Sodium (Rocephin) 1 gm in 50 mls @ 100 mls/hr IV Q24H PENDING SALE TO [facility] Last Infusion: 09/03/20 11:55 Dose: Infused Documented by: Ketorolac Tromethamine (Ketorolac 15 Mg/Ml Vial) 15 mg IV Q6 PENDING SALE TO [facility] Stop: 09/07/20 10:49 Last Admin: 09/03/20 12:14 Dose: 15 mg Documented by: Ondansetron HCl (Ondansetron 4 Mg/2 Ml Vial) 4 mg IV Q8H PRN PRN PRN Reason: NAUSEA/VOMITING Polysaccharide Iron Complex (Iron Polysaccharide Complex 150 Mg Capsule) 150 mg PO DAILYCM PENDING SALE TO [facility] Last Admin: 09/03/20 07:55 Dose: 150 mg Documented by: Multivit/Folic Acid/Iron ( Vits Tablet) 1 tablet PO DAILY [facility]END[facility] SALE [facility] Last Admin: 09/03/20 09:30 Dose: 1 tablet Documented by: Sodium Chloride (0.9% Saline Lock 10 Ml Syringe) 10 - 40 ml IV UD PRN PRN Reason: SALINE FLUSH Last Admin: 09/03/20 05:47 Dose: 20 ml Documented by: Discharge Diet: No Restrictions Discharge Activity: Return to Normal Activity, May not drive while taking narcotic pain medications. Call your doctor if you observe: Fever of 101 or Higher, Shortness of breath Home Medications: Medications to take at Discharge multivitamin no.47-iron fum 27 mg-folate no.1 1 mg-dha 300 mg capsule 1 cap PO DAILY 05/28/20 Citalopram [Celexa] 40 mg PO DAILY 08/15/20 Acetaminophen [Pain Relief] 650 mg PO Q6H PRN PRN #1 tab 09/03/20 Apixaban [Eliquis] 10 mg PO BID #66 tab 09/03/20 Azithromycin 500 mg PO DAILY #1 tab 09/03/20 Cefdinir [Omnicef [equiv]] 300 mg PO Q12H #6 cap 09/03/20 Iron Polysaccharide Complex [Ferrex 150] 150 mg PO DAILYCM #30 cap 09/03/20 Naproxen [Naprosyn] 500 mg PO BID PRN PRN #1 tab 09/03/20 traMADol [Ultram] 50 mg PO Q4H PRN PRN 3 Days #18 tab 09/03/20 Following Prescriptions Were Given to Patient: Azithromycin 500 mg PO DAILY #1 tab Transmission Status: Received by [id number] Apixaban [Eliquis] 10 mg PO BID #66 tab Transmission Status: Received by [facility] Iron Polysaccharide Complex [Ferrex 150] 150 mg PO DAILYCM #30 cap Transmission Status: Received by [facility] Naproxen [Naprosyn] 500 mg PO BID PRN PRN #1 tab PRN Reason: Pain Score 1-10 Cefdinir [Omnicef [equiv]] 300 mg PO Q12H #6 cap Transmission Status: Received by [facility] Acetaminophen [Pain Relief] 650 mg PO Q6H PRN PRN #1 tab PRN Reason: Pain Score 1-10 traMADol [Ultram] 50 mg PO Q4H PRN PRN 3 Days #18 tab PRN Reason: Pain Score 4-10 Transmission Status: Received by [facility] Primary Care Physician: Care Physician,No Primary [Primary Care Provider] - Please follow up with your Primary Care Physician in: 1-2 weeks Please Follow Up With: Jojo Lehman with [facility] When: Tuesday Please Follow Up With: OBBRIGIDO When: 1 week Please Follow Up With: Tessa Stevenson NP, [employer] When: 2 weeks Disposition: Home Minutes spent on discharge:: 35 Patient Condition:: Stable Medical Necessity - Tobacco Use Smoking Status: Former smoker Meaningful Use Info Meaningful Use Diagnoses (Choose all that apply): VTE - VTE Anticoag overlap given w/in hospital stay or rx'd at dc?: No Pt receive overlap for 5 days?: No Reason overlap not ordered, prescribed, or given for 5 days: Procedure Not Indicated <Dylan Mcmanus - Last Filed: 09/03/20 15:51> Discharge Date and Diagnosis - Primary Discharge Diagnosis Acute Problems: Active Problems (Last Updated 08/19/20 @ 10:51 by Hannah Andre) Pulmonary emboli (Acute) demise (Acute) confirmed with US. plan cytotec OCD (obsessive compulsive disorder) (Acute) H/O section (Acute) Had emergency after ultrasound done for decreased movement. Did not labor. Will obtain records from delivery. - Secondary Discharge Diagnosis Chronic Problems: Chronic Problems (Last Updated 08/19/20 @ 10:51 by Hannah Andre) Depression affecting (Chronic) Patient with history of depression and anxiety. Was taken off medication when found out she was , but having severe depression. Celexa 20mg ordered 06/26 PTSD (post-traumatic stress disorder) (Chronic) After last delivery JOSE M (generalized anxiety disorder) (Chronic) Cardiomyopathy (Chronic) Reports developed while in hospital after last delivery. Was transferred to cardiac floor. Did not have to follow with cardiology after last delivery. Will get records. 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 FOB negative. Hospital Course and Treatment Summary of Care Provided: This patient was seen in conjunction with Matthew PIERRE. I have independently interviewed and examined the patient and reviewed pertinent history, examination findings, laboratory and plan of management. I have reviewed the note and agree with the documented findings with the few additional points. In brief, patient is 30-year-old female admitted with acute bilateral pulmonary emboli with bilateral pulmonary opacities worse on the left suspicious of pulmonary infarct. Patient denies any fever or chills but has leukocytosis therefore empirically covered with antibiotic for community-acquired pneumonia. Denies yellow-colored sputum production mild hemoptysis. COVID-19 rapid antigen negative. Urinary antigens are negative. Troponin and BNP normal. B12 382. Patient left lateral chest pain got better. 2D echo was done and reported normal RV size and systolic function with trivial TR but unable to estimate RVSP. Left ventricular systolic function is normal. The estimated ejection fraction is 60 %. Trivial mitral valve insufficiency. Trivial tricuspid valve insufficiency. No evidence for diastolic dysfunction. Other comorbidities as mentioned as mentioned above. Discharge medication reconciliation done. Discharge follow-up instructions completed. Discharge process discussed with the patient and all questions were answered to patient's satisfaction. Patient discharged on cefdinir, azithromycin, and pain medication and Eliquis. Follow with PCP. Total time spent, exact 35 minutes on discharge meds reconciliation, examination, coordination of care with nurses and ancillary staff, review of imaging and blood test and discussion with the patient on follow-up instructions Clinical Impression(s) from Imaging Studies Chest CTA 09/01/20 21:40 IMPRESSION: Bilateral pulmonary emboli in both descending pulmonary arteries. Widespread bilateral pulmonary opacities worse on the left. Chest X-Ray 09/02/20 05:55 IMPRESSION: Left basilar atelectasis and/or infiltrate with mild increased markings at the right lung base. [] Objective: Seen and examined. Patient is out of bed to chair. Pain is better, rated about 7-8/10 improvement from 10/10 yesterday. No fever or chills. Blood pressure 112/58. Pulse ox 96% on ambulation on room air, 98% at rest on room air. Physical exam General: Alert, Oriented x3, Cooperative HEENT: Atraumatic, PERRLA, EOMI, Normocephalic Oral: No Gingival or Mucosal Lesions/ Ulcerations Neck: Supple, No JVD, Negative Carotid Bruits Lungs: Air entry diminished in bilateral lung bases mainly due to decreased excursion. Tenderness present on the left posterior lateral lower chest. No crepitation/rhonchi Cardiovascular: Regular rate, Regular Rhythm, Normal S1, Normal S2, No murmurs Abdomen: Bowel Sounds Present, Soft, Non Tender, Non-Distended : No renal angle tenderness. No suprapubic tenderness. Extremities: No edema, Capillary Refill Less than 3 Seconds Skin: No rashes, No breakdown Musculoskeletal: No Tenderness to Palpation of Joints or Extremities Neurological: Cranial nerves II-XII grossly intact, Deep Tendon Reflexes 2+/4 and Symmetrical, Neuro grossly intact Psych/Mental Status: Normal Affect, Appropriate. - Physical Exam Vitals/I&O's: Vital Signs Temp Pulse Resp BP Pulse Ox 98.2 F 100 20 H 105/61 94 09/03/20 14:18 09/03/20 14:18 09/03/20 14:18 09/03/20 14:18 09/03/20 14:18 Oxygen Flow Rate (L/min) 2 Oxygen Delivery Method Room Air Weight: 219 lb 9.286 oz Body Mass Index (BMI) 35.4 Intake and Output for Last 24 Hours 09/01/20 09/02/20 09/03/20 23:59 23:59 23:59 Intake Total 4142.5 / 4142.5 675 / 675 Output Total 800 / 800 450 / 450 Balance 3342.5 / 3342.5 225 / 225 Microbiology Past 72 Hours 09/02/20 16:15 Urine Catheter - Kuo Legionella Antigen - Final 09/02/20 16:15 Urine Catheter - Kuo Streptococcus pneumoniae Antigen (M - Final 09/01/20 22:20 Mucosa - Nose SARS-CoV-2 Antigen (Rapid) - Final Laboratory Results 09/03/20 05:45: WBC 10.9, RBC 3.40 L, Hgb 10.0 L, Hct 31.8 L, MCV 93.5, MCH 29.4, MCHC 31.4 L, RDW Std Deviation 43.6, RDW Coeff of May 12.8, Plt Count 308, MPV 9.8, Immature Gran % (Auto) 0.500, Neut % (Auto) 82.7 H, Lymph % (Auto) 8.4 L, [place] % (Auto) 7.2, Eos % (Auto) 1.0, Baso % (Auto) 0.2, Absolute Neuts (auto) 9.0 H, Absolute Lymphs (auto) 0.92, Nucleated RBC % 0 Current Medications Acetaminophen (Acetaminophen 500 Mg Tablet) 1,000 mg PO Q8 MARE Last Admin: 09/03/20 13:39 Dose: 1,000 mg Documented by: Alprazolam (Alprazolam 0.25 Mg Tablet) 0.25 mg PO TID PRN PRN PRN Reason: ANXIETY Last Admin: 09/03/20 09:52 Dose: 0.25 mg Documented by: Apixaban (Apixaban 5 Mg Tablet) 10 mg PO BID PENDING SALE TO [facility] Last Admin: 09/03/20 09:30 Dose: 10 mg Documented by: Citalopram Hydrobromide (Citalopram 40 Mg Tablet) 40 mg PO DAILY PENDING SALE TO [facility] Last Admin: 09/03/20 09:30 Dose: 40 mg Documented by: Cyclobenzaprine HCl (Cyclobenzaprine Hcl 10 Mg Tablet) 10 mg PO TID PRN PRN PRN Reason: MUSCLE SPASM Last Admin: 09/03/20 09:35 Dose: 10 mg Documented by: Hydromorphone HCl (Hydromorphone 1 Mg/Ml Syringe) 1 mg IV Q3H PRN PRN PRN Reason: Pain Score 6-10 Last Admin: 09/03/20 10:56 Dose: 1 mg Documented by: Azithromycin 500 mg/ Dextrose 255 mls @ 250 mls/hr IV Q24 PENDING SALE TO [facility] Last Infusion: 09/03/20 11:02 Dose: Infused Documented by: Ceftriaxone Sodium (Rocephin) 1 gm in 50 mls @ 100 mls/hr IV Q24H PENDING SALE TO [facility] Last Infusion: 09/03/20 11:55 Dose: Infused Documented by: Ketorolac Tromethamine (Ketorolac 15 Mg/Ml Vial) 15 mg IV Q6 PENDING SALE TO [facility] Stop: 09/07/20 10:49 Last Admin: 09/03/20 12:14 Dose: 15 mg Documented by: Ondansetron HCl (Ondansetron 4 Mg/2 Ml Vial) 4 mg IV Q8H PRN PRN PRN Reason: NAUSEA/VOMITING Polysaccharide Iron Complex ([facility] Pol[facility] 150 [facility]) [facility] Last Admin: 09/03/20 07:55 Dose: 150 mg Documented by: Multivit/Folic Acid/Iron ( Vits Tablet) 1 tablet PO DAILY PENDING SALE TO [facility] Last Admin: 09/03/20 09:30 Dose: 1 tablet Documented by: Sodium Chloride (0.9% Saline Lock 10 Ml Syringe) 10 - 40 ml IV UD PRN PRN Reason: SALINE FLUSH Last Admin: 09/03/20 05:47 Dose: 20 ml Documented by: Inpatient E&M: [id number] [facility]
[2020-09-03 14:18] VITALS: BP 105/61; PULSE 100; RESP 20; TEMP 36.8; O2SAT 94
--- NOTE | 2020-09-03 15:13 | NURSING ---
pt still not urinated post cath removal, encouraged PO intake, has been sleeping.
--- NOTE | 2020-09-03 15:48 | NURSING ---
pt urinated clear yellow urine, missed hatherrera called to pick pt up
== END 2020-09-03 11:11 | disposition home or self-care (01) ==
LOC: ED 23:42 → PCU 09-02 01:01
PROVIDERS: Physician Assistant; Admitting Provider Family Medicine; Emergency Provider Emergency Medicine; Referring Provider Family Medicine; Visit Provider Internal Medicine
DX: O88.23 Thromboembolism in the puerperium (principal); I26.99 Other pulmonary embolism without acute cor pulmonale; J18.9 Pneumonia, unspecified organism; D50.9 Iron deficiency anemia, unspecified; F32.9 Major depressive disorder, single episode, unspecified; Z79.899 Other long term (current) drug therapy; I42.9 Cardiomyopathy, unspecified; F41.1 Generalized anxiety disorder; F43.12 Post-traumatic stress disorder, chronic; Z87.891 Personal history of nicotine dependence; F42.9 Obsessive-compulsive disorder, unspecified
CPT/HCPCS: 36415; 71046; 71275; 80048; 80076; 82607; 82746; 83540; 83550; 83880; 84484; 85025; 87040; 87426; 87449; 93005; 93306; 96361; 96365; 96366; 96367; 96375; 96376; 97802; 99218; 99285; J7030; J7050; Q9957; Q9967; A4216; C8929; G0378; J2405; J2916

== ENCOUNTER → 2020-09-22 14:37 | Outpatient (CLI) | payer MEDICAID, SELFPAY ==
[2020-09-22 14:37] VITALS: BMI 33.8
[2020-09-22 14:59] LABS: Absolute Lymphocyte Count 2.65 X10^3/uL (0.83-4.51); Absolute Neutrophil Count 4.2 X10^3/uL (2.0-7.7); Basophil# 0.06 X10^3/uL; Basophil% 0.8 % (0-1); Eosinophil# 0.15 X10^3/uL; Hematocrit 34.3 % (37-47); Hemoglobin 11.5 g/dL (12.0-15.0); Lymphocyte # 2.65 X10^3/ul (4.0); Lymphocyte % 35.3 % (19-41); Mean Corp Hgb Conc 33.5 g/dL (32-36); Mean Corpuscular Hgb 30.6 pg (27.0-32.0); Mean Corpuscular Volume 91.2 fL (81-99); Mean Platelet Vol. 8.9 fl (6.2-12.0); Monocyte# 0.36 X10^3/uL; Monocyte% 4.8 % (0-10); NRBC Flagged by Analyzer 0 % (0-5); Neutrophil # 4.24 X10^3/uL (2.7-7.7); Neutrophil % 56.6 % (47-70); Platelet Count 442 K/mm3 (150-450); RBC Distribution Width CV 13.8 % (11.6-14.6); RBC Distribution Width SD 44.5 fl (35.1-43.9); Red Blood Count 3.76 M/mm3 (4.2-5.4); White Blood Count 7.5 K/mm3 (4.4-11.0)
== END ==
PROVIDERS: Referring Provider Obstetrics & Gynecology; Visit Provider Obstetrics & Gynecology
DX: D64.9 Anemia, unspecified (principal)
CPT/HCPCS: 36415; 85025

== ENCOUNTER 2020-11-21 20:05 | Emergency (ER) | payer MEDICAID, SELFPAY ==
[2020-09-30 09:29] VITALS: BMI 34.2
[2020-11-21 20:06] VITALS: BP 141/75; PULSE 78; RESP 16; TEMP 36.1; O2SAT 96; BMI 34.8
--- NOTE | 2020-11-21 20:24 | EKG12_ITS ---
Test Reason : DYSRHYTHMIA Blood Pressure : / mmHG Vent. Rate : 081 BPM Atrial Rate : 081 BPM P-R Int : 126 ms QRS Dur : 072 ms QT Int : 386 ms P-R-T Axes : 043 029 025 degrees QTc Int : 448 ms Normal sinus rhythm Normal ECG Confirmed by LESA HANSEN, DANA ([id number]), newspaper editor PORSCHE ALLEN ([id number]) on 11/25/2020 11:22:36 AM Referred By: EAMON Confirmed By:DANA MCFADDEN MD
--- NOTE | 2020-11-21 20:27 | ED.DCSUM_ITS ---
History of Present Illness Chief Complaint: Shortness of Breath Informant: Patient Onset: Today Quality: Sharp Location: Right Chest Narrative: Patient is a 30-year-old female presenting with chest pain. Patient states it started today on her right side and is shooting to the center of her chest and under her ribs. She states it is worse when she takes a deep breath or yawns. It is sharp in nature. She also developed shortness of breath with exertion today. She does not have any shortness of breath at rest. She no she had a mild nonproductive cough for the past few days. She also has had some headaches and myalgias. She was tested for Covid through [facility] drive-through 2 days ago which was negative. Patient denies any associated fever or chills. At the end of September/beginning of October patient was hospitalized with bilateral PEs, pneumonia and a pneumothorax. Patient had pneumothorax on the left side that was treated with a pigtail catheter. She is currently on Eliquis indefinitely. Patient currently denies any pain. Denies any associated rash. No GI or symptoms. No other complaints at this time. Prior Similar Symptoms: Yes, - - pneumonia Past Medical History - Allergies and Home Meds Allergies/Adverse Reactions: Allergies adhesive tape Adverse Reaction (Intermediate, Verified 11/21/20 20:08) Other CONTACT IRRITATION oxycodone [From Percocet] Adverse Reaction (Mild, Verified 11/21/20 20:08) Itching Past Medical History: - - PE, depression, anxiety Surgical History: noncontributory Lives: Spouse/ Significant Other Smoking Status: Former smoker - Family History Maternal Family History: Family History (Last Reviewed 09/30/20 @ 09:30 by Macie Andre) Mother Usher syndrome Family History: Reports: No pertinent history Review of Systems General: Reports: Malaise. Denies: Chills, Fever, Sweats Eyes: Denies: Visual changes - bilaterally, Diplopia ENT: Denies: Rhinorrhea, Sore throat Cardiovascular: Denies: Chest pain, Palpitations Respiratory: Reports: Cough, Dyspnea on exertion. Denies: Dyspnea, Sputum Gastrointestinal: Denies: Abdominal pain, Nausea, Vomiting, Diarrhea, Melena, Hematochezia Genitourinary: Denies: Dysuria, Hematuria, Frequency Musculoskeletal: Reports: Myalgias. Denies: Back pain, Extremity Pain Skin: Denies: Rash, Wounds Neurological: Reports: Headache. Denies: Weakness, Numbness Physical Exam Vital Signs/Narrative: Vital Signs Temp Pulse Resp BP Pulse Ox 11/21/20 20:06 97 F L 78 16 141/75 H 96 Inital Vital Signs reviewed: Yes General: Well nourished, Well developed, No Acute Distress Head: Normocephalic, Atraumatic Eyes: Perrl, EOMI ENT: Moist mucous membranes, No rhinorrhea Neck: Supple, Nontender Cardiovascular: Regular rate, Regular rhythm, No murmurs Respiratory: No distress, Chest nontender, Diminished - Right base. Negative for: Rales, Rhonchi, Wheezing, Decreased Air Movement Abdomen: Soft, Nontender, Nondistended, Normal bowel sounds Back: Nontender, Normal Inspection Extremities: Nontender, No edema Skin: Normal color, No rash Neurological: Alert, Oriented x3, Cranial nerves II-XII grossly intact, Normal Strength, Normal Sensation Psychological: Normal affect, Normal Mood Diagnostic/Tx/Re-eval Chest X-Ray - ED: 1 View, Read by ED Physician, Read by Radiologist, - - Residual left lingula infiltrate Clinical Impression(s) from Imaging Studies Chest X-Ray 11/21/20 20:42 IMPRESSION: 1. Improved inspiratory effort. 2. Minimal residual infiltrate in the lingula. Electronically Signed: Maco Alberts DO at 21:14 EST Tel [phone], Service support , Laboratory Data 11/21/20 11/21/20 11/21/20 20:30 20:30 20:30 WBC 9.6 RBC 4.33 Hgb 12.4 Hct 38.1 MCV 88.0 MCH 28.6 MCHC 32.5 RDW Std Deviation 43.7 RDW Coeff of May 13.6 Plt Count 406 MPV 9.6 Immature Gran % (Auto) 0.300 Neut % (Auto) 62.3 Lymph % (Auto) 30.3 [place] % (Auto) 5.5 Eos % (Auto) 1.1 Baso % (Auto) 0.5 Absolute Neuts (auto) 6.0 Absolute Lymphs (auto) 2.92 Nucleated RBC % 0 Sodium 137 Potassium 3.8 Chloride 104 Carbon Dioxide 28.0 Anion Gap 5 BUN 12 Creatinine 0.92 Estim Creat Clear Calc 83.70 Est GFR (MDRD) Af Amer 92 Est GFR (MDRD) Non-Af 76 BUN/Creatinine Ratio 13.1 Glucose 88 Calcium 9.1 Troponin I < 0.015 B-Natriuretic Peptide 31.1 - Rhythm Strip Rhythm Strip: Sinus Rhythm Rate: 81 Ectopy: None - EKG Initial EKG Interpretation: Sinus Rhythm, - - Normal sinus rhythm at a rate of 81 Normal axis Normal intervals Normal ST segments - Medical Decision Making Patient is evaluated for right-sided chest pain as well as pleuritic chest pain. Patient had pulmonary emboli, pneumonia and pneumothorax a little under 2 months ago. She is on anticoagulation and states she is been compliant with it. She is concerned that she might have a residual pneumonia because she still has some fatigue and chills. She is well-appearing with normal vital signs. Her lung exam is normal. Chest x-ray shows a residual infiltrate of the lingula. Her pain is more on the right side however given her lingering symptoms I will place the patient on a course of doxycycline. Patient is instructed to follow- up with her generation engineering technologist at [facility]. Given that she is on Eliquis I have a low suspicion for PE as a cause of her pain. Her cardiac work- up is negative. I think patient stable for outpatient follow-up. She is not hypoxic. Patient is counseled on signs and symptoms requiring return to the emergency room. Patient verbalizes agreement and understand this plan. Patient discharged home in stable and improved condition. ED Disposition - Plan for ED Patient: Disposition: Home or Assisted Living Diagnosis: Atypical chest pain, Lingular pneumonia Instructions: ED Chest Pain, Noncardiac, ED Pneumonia (Adult) Prescriptions: Doxycycline 100 mg PO BID #14 cap Transmission Status: Received by [id number] Additional Instructions: Please follow-up with your generation engineering technologist in [facility]. There is possibly residual pneumonia of the lung on the left side. Will be started antibiotics for this. This does not really explain your pain on the right side however I think you are safe to go home. Your Covid test is negative.
[2020-11-21 20:39] LABS: Absolute Lymphocyte Count 2.92 X10^3/uL (0.83-4.51); Basophil# 0.05 X10^3/uL; Basophil% 0.5 % (0-1); Eosinophil# 0.11 X10^3/uL; Eosinophils% 1.1 % (0-5); Hematocrit 38.1 % (37-47); Hemoglobin 12.4 g/dL (12.0-15.0); Lymphocyte # 2.92 X10^3/ul (4.0); Lymphocyte % 30.3 % (19-41); Mean Corp Hgb Conc 32.5 g/dL (32-36); Mean Corpuscular Hgb 28.6 pg (27.0-32.0); Mean Platelet Vol. 9.6 fl (6.2-12.0); Monocyte# 0.53 X10^3/uL; Monocyte% 5.5 % (0-10); NRBC Flagged by Analyzer 0 % (0-5); Neutrophil % 62.3 % (47-70); Platelet Count 406 K/mm3 (150-450); RBC Distribution Width CV 13.6 % (11.6-14.6); RBC Distribution Width SD 43.7 fl (35.1-43.9); Red Blood Count 4.33 M/mm3 (4.2-5.4); White Blood Count 9.6 K/mm3 (4.4-11.0)
--- NOTE | 2020-11-21 20:42 | RAD_ITS ---
STUDY: X-RAY CHEST REASON FOR EXAM: Female, 30 years old. Chest pain. Shortness of breath. Negative COVID 19 test 2 days ago TECHNIQUE: Single AP portable view of the chest. COMPARISON: 09/02/2020. FINDINGS: The lungs are mildly hypoexpanded. There is persistent density in the region of the lingula. This appears improved when compared to prior study. Lungs are otherwise clear. There is no demonstrated pleural abnormality. Normal size heart. Normal mediastinum and natalia. Normal visualized pulmonary arteries. Normal visualized aortic arch and descending thoracic aorta. The thoracic spine is obscured by the mediastinum. Normal visualized ribs, clavicles, and shoulders. There is no demonstrated abnormality of the visualized soft tissue structures of the upper abdomen. RAD/Chest 1 View (Portable) IMPRESSION: 1. Improved inspiratory effort. 2. Minimal residual infiltrate in the lingula. Electronically Signed: Maco Alberts DO at 21:14 EST Tel [phone], Service support ,
[2020-11-21 20:56] LABS: Anion Gap 5 (5-15); BUN 12 mg/dL (7-18); BUN/Creat Ratio 13.1 RATIO (10-20); Calcium,Total 9.1 mg/dL (8.5-10.1); Chloride 104 mmol/L (98-107); Creatinine, Serum 0.92 mg/dL (0.55-1.02); EST Glomerular Filtration Rate 76 mL/min (>60); Est Glom Filt Rate - Afr Amer 92 mL/min (>60); Glucose 88 mg/dL (74-106); Potassium 3.8 mmol/L (3.5-5.1); Sodium Level 137 mmol/L (136-145)
[2020-11-21 21:06] LABS: BNP,B-Type NATRIURETIC PEPTIDE 31.1 pg/mL (0-100)
[2020-11-21 22:42] VITALS: BP 99/62; PULSE 82; RESP 24; O2SAT 99
== END 2020-11-21 22:43 | disposition home or self-care (01) ==
PROVIDERS: Emergency Provider Emergency Medicine; PCP Family Medicine
DX: J18.9 Pneumonia, unspecified organism (principal); F32.9 Major depressive disorder, single episode, unspecified; F41.9 Anxiety disorder, unspecified; Z87.01 Personal history of pneumonia (recurrent); Z86.711 Personal history of pulmonary embolism; Z79.01 Long term (current) use of anticoagulants; Z79.899 Other long term (current) drug therapy; Z87.891 Personal history of nicotine dependence
CPT/HCPCS: 71045; 80048; 83880; 84484; 85025; 87426; 93005; 99285; A4216

== ENCOUNTER 2021-01-23 14:32 | Emergency (ER) | payer MEDICAID, SELFPAY ==
[2021-01-23 14:34] VITALS: BP 130/87; PULSE 90; RESP 16; TEMP 37; O2SAT 97; BMI 35.7
--- NOTE | 2021-01-23 15:02 | ED.DCSUM_ITS ---
- ER Visit Summary Date of Service: 01/23/21 Chief Complaint: Depression History of Present Illness: The patient is a 30 F who goes to the counseling center. She reports that she had a stillbirth in August and has had a very difficult time recovering from this. States that she went on vacation and forgo t her Celexa. She missed this for 4 days. States that she restarted it today. Reports that she has felt more depressed. She denies any suicidal or homicidal ideation. No auditory visual hallucinations. Physical Examination: Vitals: Stable. Afebrile. General: Well-nourished and well-developed. Head: Normocephalic atraumatic. Neck: Supple, no lymphadenopathy. No JVD. Nontender. Cardiovascular: Regular rate and rhythm. No murmurs. Respiratory: No respiratory distress. Clear to auscultation bilaterally. Abdominal: Soft, nontender, nondistended, normal bowel sounds. No guarding, rebound, or peritoneal signs. Back: Nontender. Extremities: Nontender, no edema. Skin: Normal color, no rash. Neurologic: Alert and oriented ?3. Cranial nerves II through XII are intact. Normal strength and sensation. Mental status exam: Patient appears their stated age. Good posture and grooming. Good eye contact. Normal rate, volume, and latency of speech. No homicidal ideation. No auditory or visual hallucinations. Flow of thought is logical. Insight and judgment is fair. Emergency Department Course and Treatment: Patient is resting comfortably. I had a prolonged discussion with her about more natural treatment methods. She is instructed to continue her Celexa. She is able to contract for safety and does not meet requirement for admission to the hospital. Treatment Plan: Patient will have Klonopin added to her regimen. Follow-up to counseling center soon as possible. Return to the emergency department for any worsening symptoms. Disposition: To home in improved and stable condition. Impression: 1. Depression. This note was generated with [employer] dictation software. It may contain incorrect words, spelling, and punctuation that were not noted in review of the chart prior to signing ED Disposition - Plan for ED Patient: Disposition: Home or Assisted Living Instructions: ED Depression Prescriptions: Clonazepam 0.5 mg PO BID #60 tablet Prescription Printed Referrals: Matthias Raya DO [Primary Care Provider] - Counseling,Center [GROUP OF PHYSICIANS] - As soon as possible
[2021-01-23 15:20] VITALS: BP 132/78; PULSE 87; RESP 16; O2SAT 99
== END 2021-01-23 15:21 | disposition home or self-care (01) ==
LOC: ED 15:11
PROVIDERS: Emergency Provider Emergency Medicine; PCP Family Medicine
DX: F32.9 Major depressive disorder, single episode, unspecified (principal); R05 Cough; R51.9 Headache, unspecified; Z86.711 Personal history of pulmonary embolism; Z79.01 Long term (current) use of anticoagulants; Z79.899 Other long term (current) drug therapy
CPT/HCPCS: 99282